=== PATIENT | male | born 1940 | race African-American/Black ===

== ENCOUNTER 2016-12-04 20:18 | Inpatient (IN) ==
[2016-12-04] MEDS ORDERED: ACETAMINOPHEN 500 MG TABLET PO STA (20:30)
[2016-12-04] MEDS ORDERED: KETOROLAC 30 MG/1 ML VIAL IV STA (20:49)
[2016-12-04] MEDS ORDERED: SODIUM CHLORIDE 0.9% 1,000 ML IV STA ×2 (20:50→22:48)
[2016-12-04] MEDS ORDERED: SODIUM CHLORIDE 0.9% 2,000 ML IV STA (20:53)
--- NOTE | 2016-12-04 20:57 | Emergency Department Note ---
Arrival - Arrival Chief Complaint: Upper Respiratory Stated Complaint: SOB, Coughing, chills ED Nursing Triage Note: C/O Fever/body aches/nonproductive cough. Onset over a week, but got worse tonight. Pt reports taking OTC meds without relief. Mode of Arrival: Wheelchair Time Seen by Provider: 12/04/16 20:49 - History of Present Illness HPI Narrative: This is a 76-year-old male of descent with a history of craniotomy, hyperlipidemia, hypertension, COPD, pneumonia, prostate surgery for prostate cancer, type 2 diabetes who presents with teeth chattering chills and fever which started this evening. He has no abdominal pain chest pain or shortness of breath. He has a nonproductive cough which he believes is chronic. He has a history of pneumonia. His flu vaccination is not current. Allergies/Adverse Reactions: Allergies Allergy/AdvReac Type Severity Reaction Status Date / Time No Known Allergies Allergy Verified 10/17/16 21:43 Home Medications: Home Medications Medication Instructions Recorded Confirmed Type Omeprazole 20 mg PO DAILY 09/23/14 12/04/16 History Tamsulosin [Flomax] 0.4 mg PO BEDTIME 09/23/14 12/04/16 History metFORMIN [Glucophage] 1,000 mg PO BID W/MEALS #60 tablet 09/27/14 12/04/16 Rx Potassium Chloride Cap/Tab [K Dur] 20 meq PO DAILY 06/16/15 12/04/16 History Insulin Detemir [Levemir] 30 unit SUBCUT BEDTIME 08/19/15 12/04/16 History Valsartan/Hydrochlorothiazide 1 tablet PO DAILY 08/19/15 12/04/16 History [Valsartan-Hctz 160-25 mg Tab] Finasteride 5 mg PO BEDTIME 03/24/16 12/04/16 History Glimepiride [Amaryl] 4 mg PO DAILY W/BREAKFAST 03/24/16 12/04/16 History Levalbuterol Neb [Xopenex Neb] 0.63 mg RESP TX RT Q4H PRN #0 neb 03/29/16 Rx Aspirin EC Tab 81 mg PO DAILY 10/10/16 12/04/16 History Nitroglycerin Sl Tab [Nitrostat] 0.4 mg SL Q5M PRN 10/10/16 12/04/16 History Fluticasone/Salmeterol 250-50 1 puff INH BID 10/11/16 12/04/16 History [Advair 250-50] HYDROcodone/ACETAMIN 10-325 [[place]to[place] 1 tablet PO BID 10/11/16 12/04/16 History 10-325] Review of System - Review of System Constitutional: Present: chills, fever. Absent: night sweats Head/Ears/Nose/Throat: Absent: epistaxis, nasal drainage Respiratory: Absent: respiratory distress, wheezing Cardiovascular: Absent: dyspnea on exertion, orthopnea Gastrointestinal: Absent: diarrhea, constipation, hematemesis Genitourinary male: Absent: urgency, hematuria Musculoskeletal: Absent: lower back pain, leg pain Skin: Absent: change in color, change in hair/nails Neurological: Absent: numbness, paresthesias, confusion Psychiatric: Absent: anxiety, depression Endocrine: Absent: heat intolerance, polyuria Hematological/Lymphatic: Absent: easy bruising, lymphadenopathy Allergic/Immunologic: Absent: urticaria, itchy eyes Medical,Surgical,& Family Hx - Medical History Cardio: History of: Hypertension Neurology: No history of: Seizures Endocrine: History of: Diabetes Mellitus (IDDM), Diabetes Mellitus (NIDDM), Dyslipidemia Respiratory: History of: COPD, Pneumonia Gastrointestinal: History of: GERD, Hemorrhoids Musculoskeletal: History of: Back/Neck Problems, Musculoskeletal Problems (ela shoulder pain sometimes. ?arthritis?) No history of: Amputation Reproductive: Reports: Reproductive Problems (prostate cancer) - Surgical History Cardiac Surgeries: Patient Denies: Cardiac Surgery Thoracic Surgeries: Patient denies;: Lobectomy Abdominal Surgeries: Surgical HX of: Abdominal Surgery, Hernia Repair Reproductive Surgeries: Surgical HX of;: Prostate Surgery (PT HAD PROSTATE SURGERY) Orthopedic Surgeries: Surgical HX of;: Orthopedic Surgery, Spinal Surgery - Family History Family History: Reports;: Family Cancer, Family Diabetes, Family Heart Disease, Family Hypertension - Social History Smoking Status: Current every day smoker Frequency of Alcohol Use: None Type of Drug Use: None Exam Vital Signs: Vital Signs Temperature 102.3 F H 12/04/16 21:43 Pulse Rate 132 H 12/04/16 20:34 Respiratory Rate 21 12/04/16 20:34 Blood Pressure 127/69 12/04/16 20:34 O2 Sat by Pulse Oximetry 95 12/04/16 20:31 - General General appearance: alert - Eye Eye exam: Present: PERRL, EOMI - ENT ENT exam: Present: normal exam - Neck Neck exam: Present: normal inspection, full ROM - Chest Chest inspection: Present: normal inspection, symmetric chest wall rise - Respiratory Respiratory exam: Present: normal lung sounds bilaterally - Cardiovascular Cardiovascular exam: Present: regular rate, irregular rhythm - Abdominal Exam Abdominal exam: Present: soft, normal bowel sounds - Extremities Exam Extremities exam: Present: normal inspection, full ROM - Back Exam Back exam: Present: normal inspection, full ROM - Neurological Exam Neurological exam: Present: alert, oriented X3 - Psychiatric Psychiatric exam: Present: normal affect, normal mood - Skin Skin exam: Present: warm, dry Course Course Narrative: Because the patient has teeth chattering chills high fever and infiltrate in the left lung on CT scan with hypotension it seems most compatible with sepsis as a result of pneumonia with a comorbidity of COPD requiring admission for intravenous antibiotics and fluid resuscitation. The case was discussed with the hospitalist who agreed to admit the patient. Results - Labs CBC & BMP: 12/04/16 21:20 12/04/16 21:20 Disposition Clinical Impression: Pneumonia, Sepsis Disposition: Still a Patient Additional Instructions: Because the patient has teeth chattering chills high fever and infiltrate in the left lung on CT scan with hypotension it seems most compatible with sepsis as a result of pneumonia with a comorbidity of COPD requiring admission for intravenous antibiotics and fluid resuscitation. The case was discussed with the hospitalist who agreed to admit the patient.
[2016-12-04] MEDS ORDERED: KETOROLAC 30 MG/1 ML VIAL ONE (21:38)
[2016-12-04] MEDS ORDERED: ACETAMINOPHEN 500 MG TABLET ONE (21:39)
[2016-12-04 21:43] LABS: Basophils # 0.1 10*3/uL (0.0-0.2); Basophils % 0.4 % (0.0-0.8); Eosinophils # 0.2 10*3/uL (0.0-0.87); Eosinophils % 1.6 % (0.00-10.9); Hematocrit 38.7 VOL% (42.0-52.0); Hemoglobin 12.6 GM/DL (14.0-18.0); Immature Granulocytes % 0.3 %; Immature Granulocytes Absolute 0.04 #; Lymphocytes # 1.3 10*3/uL (1.4-4.0); Lymphocytes % 10.9 % (21.2-54.2); Mean Corpuscular HGB Conc 32.6 GM/DL (32-36); Mean Corpuscular Hemoglobin 27 PG (27-34); Mean Corpuscular Volume 81.6 FL (87-102); Mean Platelet Volume 9.7 FL (9.6-12.0); Monocytes # 0.5 10*3/uL (0.11-0.8); Neutrophils # 9.5 10*3/uL (1.4-7.4); Neutrophils % 82.8 % (38.7-73.9); Platelet Count 304 T/CUMM (130-400); Red Blood Count 4.74 MC/CUMM (3.8-5.5); Red Cell Distribution Width 15.6 % (9.3-17.3); White Blood Count 11.5 T/CUMM (4-12)
[2016-12-04 21:49] LABS: Apearance,Urine CLEAR (Clear); Bilirubin,Urine Negative (Negative); Blood, Urine Negative (Negative); Glucose,Urine (UA) 50 mg/dL (Negative); Ketones,Urine Negative (Negative); Mucus,Urine Occasional /LPF (Occasional); Nitrite,Urine Negative (Negative); Protein,Urine Negative; Urine Color Yellow (Yellow); Urine Specific Gravity 1.013 (1.001-1.035); Urine Urobilinogen < 2.0 EU/DL (0.2-1.0); WBC,Urine <1 /HPF (0-6)
[2016-12-04 22:06] LABS: Alanine Aminotransferase 18 U/L (16-61); Albumin 3.3 G/DL (3.4-5.0); Alkaline Phosphatase 128 U/L (45-117); Aspartate Amino Transferase 15 U/L (0-37); Bilirubin,Total < 0.39 MG/DL (0.2-1.0); Blood Urea Nitrogen 27 MG/DL (7-18); Calcium 9.2 MG/DL (8.5-10.1); Glucose 271 MG/DL (74-106); Sodium 136 MMOL/L (136-145); Total Protein 7.4 G/DL (6.4-8.3)
[2016-12-04] MEDS ORDERED: CEFEPIME 2,000 MG in SODIUM CHLORIDE 0.9% 100 ML IV STA (22:48)
[2016-12-04] MEDS ORDERED: VANCOMYCIN INJ 1,000 MG in SODIUM CHLORIDE 0.9% 250 ML IV STA (22:49)
[2016-12-04] MEDS ORDERED: VANCOMYCIN 1,000 MG VIAL ONE (23:04)
[2016-12-04] MEDS ORDERED: SODIUM CHLORIDE 0.9% 100 ML IV ONE (23:05)
[2016-12-05] MEDS ORDERED: ACETAMINOPHEN 325 MG TABLET PO PRN
[2016-12-05] MEDS ORDERED: DEXTROSE 50% 25 GM/50 ML SYRINGE IV PRN
[2016-12-05] MEDS ORDERED: GLUCAGON 1 MG VIAL IM PRN
[2016-12-05] MEDS ORDERED: ALBUTEROL/IPRATROPIUM 3 ML NEB RESP TX PRN (00:12)
--- NOTE | 2016-12-05 00:28 | Hospitalist History & Physical ---
Assessment and Plan - Time spent with patient Time spent with patient: Greater than 30 minutes (1) Sepsis Status: Acute Assessment and plan: Admit to hospitalist services. Telemetry. WBC 11.5. Lactic acid 1.4. Blood cultures performed in ED; follow. Continue IV hydration with NS at 100 ml/hr. Ceftriaxone 2 g IV daily. Azithromycin 500 mg IV daily. Obtain CXR. Recheck CBC in am. Current Visit: Yes (2) Pneumonia Status: Acute Assessment and plan: As above for sepsis. O2 per unit protocol. Continuous pulse ox. DuoNebs Q6 hours and Q4 hours PRN. Current Visit: Yes (3) Hypotension Status: Acute Assessment and plan: Secondary to sepsis. Continue IV hydration with NS at 100 ml/hr. Hold home BP meds for now. Continue to monitor. Current Visit: Yes (4) Anemia Status: Acute Assessment and plan: Obtain FOBT. Recheck CBC in am. Current Visit: Yes (5) COPD (chronic obstructive pulmonary disease) Status: Chronic Assessment and plan: O2 per unit protocol. Continuous pulse ox. DuoNebs Q6 and Q4 PRN. Solumedrol 40 mg IV Q8 hours. Current Visit: Yes Qualifiers: COPD type: COPD with acute exacerbation Qualified Code(s): J44.1 - Chronic obstructive pulmonary disease with (acute) exacerbation (6) Diabetes Status: Chronic Assessment and plan: ADA diet. Accuchecks ACHS. SSI ACHS with Humulin R. Continue home dose of glimeperide and Levemir. Hold metformin due to creatinine of 1.7. Recheck BMP in am. Current Visit: Yes (7) DVT prophylaxis Status: Acute Assessment and plan: Lovenox 40 SQ daily. Current Visit: Yes History of Present Illness Chief complaint: chills, cough, weakness History of present illness: Mr. David Mcnair is a 76 year old male with a history of COPD, pneumonia, DM, and HTN who presented to the ED tonight with complaints of chills, cough and weakness. Cough began 2 days ago and was productive at first but then became dry today. Onset of chills and weakness was today. In the ED, the patient was found to have a temp of 103.4 and tachycardia in the 130s. WBC and lactic acid were normal. He was given 2 L of NS, after which his BP actually decreased into the 90s systolic. CT chest indicates left lobe pneumonia. Blood cultures were drawn, and the patient was started on antibiotic therapy. Hospitalist services were consulted, and the patient will be admitted to the telemetry unit for further evaluation and treatment. Home Medications Medication Instructions Recorded Confirmed Type Omeprazole 20 mg PO DAILY 09/23/14 12/04/16 History Tamsulosin [Flomax] 0.4 mg PO BEDTIME 09/23/14 12/04/16 History metFORMIN [Glucophage] 1,000 mg PO BID W/MEALS #60 tablet 09/27/14 12/04/16 Rx Potassium Chloride Cap/Tab [K Dur] 20 meq PO DAILY 06/16/15 12/04/16 History Insulin Detemir [Levemir] 30 unit SUBCUT BEDTIME 08/19/15 12/04/16 History Valsartan/Hydrochlorothiazide 1 tablet PO DAILY 08/19/15 12/04/16 History [Valsartan-Hctz 160-25 mg Tab] Finasteride 5 mg PO BEDTIME 03/24/16 12/04/16 History Glimepiride [Amaryl] 4 mg PO DAILY W/BREAKFAST 03/24/16 12/04/16 History Levalbuterol Neb [Xopenex Neb] 0.63 mg RESP TX RT Q4H PRN #0 neb 03/29/16 Rx Aspirin EC Tab 81 mg PO DAILY 10/10/16 12/04/16 History Nitroglycerin Sl Tab [Nitrostat] 0.4 mg SL Q5M PRN 10/10/16 12/04/16 History Fluticasone/Salmeterol 250-50 1 puff INH BID 10/11/16 12/04/16 History [Advair 250-50] HYDROcodone/ACETAMIN 10-325 [[place] 1 tablet PO BID 10/11/16 12/04/16 History 10-325] Allergies Allergy/AdvReac Type Severity Reaction Status Date / Time No Known Allergies Allergy Verified 10/17/16 21:43 Medical,Surgical,& Family Hx - Medical History Cardio: History of: Hypertension Psychological: No history of: Anxiety Disorders Neurology: No history of: Seizures Endocrine: History of: Diabetes Mellitus (IDDM), Dyslipidemia Respiratory: History of: COPD, Pneumonia Gastrointestinal: History of: GERD, Hemorrhoids Musculoskeletal: History of: Back/Neck Problems, Musculoskeletal Problems (ela shoulder pain sometimes. ?arthritis?) No history of: Amputation Reproductive: Reports: Reproductive Problems (prostate cancer) - Surgical History Cardiac Surgeries: Sugical HX of: Cardiac Catheterization Patient Denies: Cardiac Surgery Thoracic Surgeries: Patient denies;: Lobectomy Abdominal Surgeries: Surgical HX of: Abdominal Surgery, Hernia Repair Reproductive Surgeries: Surgical HX of;: Prostate Surgery (PT HAD PROSTATE SURGERY) Orthopedic Surgeries: Surgical HX of;: Orthopedic Surgery, Spinal Surgery - Family History Family History: Reports;: Family Cancer, Family Diabetes, Family Heart Disease, Family Hypertension - Social History Smoking Status: Current every day smoker Have you smoked in the last 12 months: Yes Time spent discussing smoking cessation with patient: 3 to 10 minutes (3 minutes spent discussing smoking cessation with patient.) Frequency of Alcohol Use: None Type of Drug Use: None Marital Status: Legally Lives With:: Children (daughter) Functional capacity: independent ambulation - Constitutional Constitutional: Present: chills, fever(s), weakness - EENT Eyes: Absent: blurry vision, diplopia, loss of vision Ears: Absent: decreased hearing, ear discharge, ear pain Nose, mouth and throat: Absent: headache(s), nasal congestion, sore throat - Cardiovascular Cardiovascular: Absent: chest pain at rest, chest pain with activity, dyspnea, edema, orthopnea, palpitations - Respiratory Respiratory: Present: cough, wheezing. Absent: dyspnea - Gastrointestinal Gastrointestinal: Absent: diarrhea, nausea, vomiting - Genitourinary Genitourinary: Absent: dysuria, hematuria, urinary frequency - Musculoskeletal Musculoskeletal: Present: muscle weakness. Absent: back pain, joint swelling, myalgias - Neurological Neurological: Absent: dizziness, numbness, paresthesias, syncope - Psychiatric Psychiatric: Absent: anxiety, depression - Endocrine Endocrine: Absent: cold intolerance, polydipsia, polyphagia, polyuria - Hematologic/Lymphatic Hematologic/Lymphatic: Absent: easy bleeding, easy bruising Exam - Constitutional Vitals: Period Temp Pulse Resp BP Sys/Campuzano Pulse Ox Last 24 Hr 100.2 F-103.4 F 132-133 20-22 127-129/69-70 95 Exam: Constitutional System: Febrile. Awake, alert and oriented x 3. No distress. No tremulousness. Head: Normocephalic, atraumatic. Ears, Nose and Throat System: No pain or tenderness. No epistaxis or discharge Eyes System: Pupils equal, round, and reactive. Extraocular muscles intact grossly. Neck: Supple, without adenopathy, No jugular venous distention. No thyromegaly, neck mass, or prior surgery apparent. Respiratory System: Bilateral wheezing noted. Cardiovascular System: Tachycardia; regular rhythm. No murmur. GI System: Abdomen soft, LLQ tenderness noted. Normo active bowel sounds present. Musculoskeletal System: Limbs with no pedal edema. Full distal pulses. Normal capillary refill. Neurological System: No discernable sensory deficit. No aphasia Psychiatric System: Conversation is rational Results - Labs CBC & BMP: 12/04/16 21:20 12/04/16 21:20 Lab Results: I have reviewed the past 24 hour labs
[2016-12-05] MEDS: ALBUTEROL/IPRATROPIUM 3 ML NEB RESP TX SCH ×4 (00:59→20:12)
[2016-12-05] MEDS ORDERED: SODIUM CHLORIDE 0.9% 1,000 ML IV STA (01:27)
[2016-12-05] MEDS: SODIUM CHLORIDE 0.9% 1,000 ML IV SCH ×3 (02:59→23:06)
[2016-12-05] MEDS: INSULIN GLARGINE 100 UNIT/ML SUBCUT SCH ×3 (03:08→21:57)
[2016-12-05] MEDS: ENOXAPARIN 40 MG/0.4 ML SYRINGE SUBCUT SCH ×2 (03:10→23:59)
[2016-12-05] MEDS: methylPREDNISolone SOD SUC 40 MG/1 ML VIAL IV SCH ×4 (03:11→23:58)
[2016-12-05] MEDS: AZITHROMYCIN INJ 500 MG in SODIUM CHLORIDE 0.9% 250 ML IV SCH (03:16)
[2016-12-05] MEDS: cefTRIAXone 2,000 MG in SODIUM CHLORIDE 0.9% 100 ML IV SCH (03:21)
[2016-12-05 07:23] LABS: Basophils % 0.4 % (0.0-0.8); Eosinophils # 0.1 10*3/uL (0.0-0.87); Eosinophils % 0.7 % (0.00-10.9); Hematocrit 35.1 VOL% (42.0-52.0); Hemoglobin 11.5 GM/DL (14.0-18.0); Immature Granulocytes % 0.3 %; Immature Granulocytes Absolute 0.03 #; Lymphocytes # 1.2 10*3/uL (1.4-4.0); Lymphocytes % 11.5 % (21.2-54.2); Mean Corpuscular HGB Conc 32.8 GM/DL (32-36); Mean Corpuscular Hemoglobin 27 PG (27-34); Mean Corpuscular Volume 82.6 FL (87-102); Monocytes # 0.2 10*3/uL (0.11-0.8); Monocytes % 1.6 % (1.7-12.7); Neutrophils # 9.1 10*3/uL (1.4-7.4); Neutrophils % 85.5 % (38.7-73.9); Platelet Count 270 T/CUMM (130-400); Red Blood Count 4.25 MC/CUMM (3.8-5.5); White Blood Count 10.7 T/CUMM (4-12)
[2016-12-05 07:54] LABS: Calcium 8.4 MG/DL (8.5-10.1); Osmolality,Calculated 288.5 MOS/KG (273-304); Potassium 4.5 MMOL/L (3.5-5.1)
[2016-12-05] MEDS: PANTOPRAZOLE 40 MG TABLET PO SCH (08:18)
[2016-12-05] MEDS: GLIMEPIRIDE 4 MG TABLET PO SCH (08:18)
--- NOTE | 2016-12-05 08:18 | CT Report ---
Exam: CT chest with intravenous contrast Clinical History: 76-year-old male with fever postop surgery 6 months ago. Known prostate cancer Technique: Axial computed tomography images of the chest with intravenous contrast. The CT exam was performed using one or more of the following dose reduction techniques: Automated exposure control, adjustment of the mA and/or kV according to patient size, or use of iterative reconstruction technique. Contrast: 100 mL of Omnipaque 350 administered intravenously. Comparison: No relevant prior studies available Findings: Lungs: Emphysematous changes predominantly involving upper lobes with focal area of interstitial thickening and irregularity involving the lingular lobe Pleural spaces: No pneumothorax. No significant effusion Heart: No cardiomegaly. No pericardial effusion Mediastinum: Intact. Normal trachea Bones/joints: Intact. No acute fracture. No dislocation. Soft tissues: No radiopaque foreign body Vasculature: Intact Lymph nodes: A few prominent scattered mediastinal and hilar lymph nodes Impression: 1. Chronic emphysema with superimposed left lingular pneumonia 2. Prominent mediastinal and hilar lymph nodes, likely reactive Exam: CT abdomen and pelvis with intravenous contrast Exam date: December 04, 2016 Clinical History: 76-year-old male with fever postop surgery 6 months ago. Known prostate cancer Technique: Axial computed tomography images of the abdomen and pelvis with intravenous contrast. All CT scans at this facility use one or more dose reduction techniques. Automated exposure control, MA/KV adjustment per patient size (including targeted exam Square dose is matched to indication) or iterative reconstruction technique Contrast: 100 mL of Omnipaque 350 administered intravenously Comparison: No relevant prior studies Findings: Lower thorax: No acute pathologic findings at the lung bases Abdomen: Liver: Unremarkable. No mass Gallbladder and bile ducts: Gallbladder is normal. No calcified stones. No ductal dilatation. Pancreas: Pancreas is normal. Spleen: Spleen is normal. Adrenals: No adrenal mass. Kidneys and ureters: Kidneys are normal in size, morphology and enhancement. Few scattered hypodensities, likely representing small cysts. No hydronephrosis. No ureteral calculus. Stomach and bowel: No evidence of acute gastritis, colitis or enteritis. No bowel obstruction. Moderate stool dispersed throughout the colon. Appendix: Unremarkable. No primary or secondary signs to suggest appendicitis. Pelvis: Bladder: Unremarkable Reproductive: Prostate gland is slightly irregular in contour with heterogeneity performing the urinary bladder base. Abdomen and pelvis: Intraperitoneal space: No pneumoperitoneum. No significant intraperitoneal fluid Bones/joints: No acute osseous abnormality Soft tissues: No mass Vasculature: No aortic aneurysm. Atheromatous calcifications Lymph nodes: No adenopathy Impression: 1. Constipation 2. Heterogeneous, mildly irregular prostate gland slightly deforming the urinary bladder base. 3. Other findings as discussed above PROCEDURE INTERPRETED AT [facility] DEPARTMENT OF RADIOLOGY Final Report Signed by: Fuentes Fay
[2016-12-05] MEDS: NICOTINE 14 MG/24 HR PATCH TRANSDERM SCH (08:19)
[2016-12-05] MEDS: INSULIN REGULAR 100 UNIT/ML SUBCUT SCH ×4 (08:21→21:57)
--- NOTE | 2016-12-05 08:48 | XRay Report ---
Portable chest December 05, 2016 at 0018 hours Indication: Shortness of breath, cough Comparison: October 17, 2016 Findings: Cardiomediastinal contours are normal. Emphysematous changes with diffuse interstitial coarsening throughout the upper lobes. Patchy alveolar opacities within the left midlung. No acute osseous abnormalities. Visualized upper abdomen demonstrates no acute pathology. Impression: Chronic emphysematous and interstitial changes with findings to suggest superimposed left midlung pneumonia PROCEDURE INTERPRETED AT [facility] DEPARTMENT OF RADIOLOGY Final Report Signed by: Fuentes Fay
[2016-12-05] MEDS ORDERED: SODIUM CHLORIDE 0.9% 1,000 ML IV ONE (09:36)
--- NOTE | 2016-12-05 09:47 | EKG Report ---
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
--- NOTE | 2016-12-05 11:21 | Hospitalist Progress Note ---
Assessment and Plan (1) Acute respiratory failure with hypoxemia Status: Acute Assessment and plan: Continue duo nebs every 6 hours. Continue azithromycin and Rocephin. Continue low-dose of steroids. Current Visit: Yes (2) Pneumonia Status: Acute Assessment and plan: Continue azithromycin and Rocephin. Current Visit: No (3) Acute exacerbation of chronic obstructive pulmonary disease (COPD) Status: Acute Assessment and plan: Continue duo nebs every 6 hours. Continue azithromycin and Rocephin. Continue low-dose of steroids. Current Visit: No (4) IDDM (insulin dependent diabetes mellitus) Status: Chronic Assessment and plan: Blood sugars not well controlled partially due to the steroids. Will increase insulin to 20 units of Lantus during the day and 30 units of Lantus at night. We will up his sliding scale to high dose Current Visit: No (5) Sepsis Status: Acute Assessment and plan: Resolved with IV fluids and antibiotics. Blood cultures pending Current Visit: Yes (6) Hypotension Status: Acute Assessment and plan: Resolved with IV fluids. Current Visit: Yes (7) Anemia Status: Acute Assessment and plan: Stable, continue proton Current Visit: Yes Hospitalist: Subjective Interval history: Patient admitted for sepsis. Hypotension has resolved with IV fluids. Patient received 3 L of IV fluids. Exam - Constitutional Vitals: Period Temp Pulse Resp BP Sys/Campuzano Pulse Ox Last 24 Hr 96.4 F-103.4 F 82-133 12-22 84-129/56-74 94-100 Exam: Heart Rate-[RRR] Lungs-[CTAB] GI-[+bs soft, NT] Ext-[no edema] Neuro [Motor 5/5], [alert and oriented times 3] psych [normal mood and affect] General [no acute distress] Results - Labs CBC & BMP: 12/05/16 06:44 12/05/16 06:44 Lab Results: I have reviewed the past 24 hour labs Labs: Flu swab negative - Diagnostic Findings Procedure: Chest x-ray: report reviewed by me (Chronic emphysema and interstitial changes consistent with left midlung pneumonia.)
[2016-12-05] MEDS: ASPIRIN EC 81 MG TABLET PO SCH (17:01)
[2016-12-05] MEDS: FLUTICASONE/SALMETEROL 250-50 DISKUS 14 DOSE INH SCH (21:06)
[2016-12-05] MEDS: TAMSULOSIN 0.4 MG CAPSULE PO SCH (21:07)
[2016-12-06] MEDS: ALBUTEROL/IPRATROPIUM 3 ML NEB RESP TX SCH ×4 (02:00→19:11)
[2016-12-06] MEDS: AZITHROMYCIN INJ 500 MG in SODIUM CHLORIDE 0.9% 250 ML IV SCH (02:05)
[2016-12-06 03:18] LABS: Basophils % 0.1 % (0.0-0.8); Hemoglobin 11.4 GM/DL (14.0-18.0); Immature Granulocytes % 0.5 %; Immature Granulocytes Absolute 0.07 #; Lymphocytes # 1.5 10*3/uL (1.4-4.0); Lymphocytes % 11.6 % (21.2-54.2); Mean Corpuscular HGB Conc 32.6 GM/DL (32-36); Mean Corpuscular Hemoglobin 27 PG (27-34); Mean Platelet Volume 10.1 FL (9.6-12.0); Monocytes # 0.3 10*3/uL (0.11-0.8); Monocytes % 2.4 % (1.7-12.7); Neutrophils % 85.4 % (38.7-73.9); Platelet Count 258 T/CUMM (130-400); Red Blood Count 4.27 MC/CUMM (3.8-5.5); Red Cell Distribution Width 15.9 % (9.3-17.3); White Blood Count 12.9 T/CUMM (4-12)
[2016-12-06] MEDS: cefTRIAXone 2,000 MG in SODIUM CHLORIDE 0.9% 100 ML IV SCH (03:24)
[2016-12-06 03:47] LABS: Calcium 8.7 MG/DL (8.5-10.1); Osmolality,Calculated 288.5 MOS/KG (273-304); Potassium 4.6 MMOL/L (3.5-5.1)
[2016-12-06] MEDS: GLIMEPIRIDE 4 MG TABLET PO SCH (09:40)
[2016-12-06] MEDS: methylPREDNISolone SOD SUC 40 MG/1 ML VIAL IV SCH ×2 (09:42→16:07)
[2016-12-06] MEDS: INSULIN GLARGINE 100 UNIT/ML SUBCUT SCH ×2 (09:43→20:59)
[2016-12-06] MEDS: INSULIN REGULAR 100 UNIT/ML SUBCUT SCH ×4 (09:43→20:59)
[2016-12-06] MEDS: SODIUM CHLORIDE 0.9% 1,000 ML IV SCH ×2 (09:44→20:10)
[2016-12-06] MEDS: PANTOPRAZOLE 40 MG TABLET PO SCH (10:04)
[2016-12-06] MEDS: ASPIRIN EC 81 MG TABLET PO SCH (10:04)
[2016-12-06] MEDS: FLUTICASONE/SALMETEROL 250-50 DISKUS 14 DOSE INH SCH ×2 (10:05→21:03)
[2016-12-06] MEDS: NICOTINE 14 MG/24 HR PATCH TRANSDERM SCH (10:05)
[2016-12-06] MEDS: TAMSULOSIN 0.4 MG CAPSULE PO SCH (20:59)
[2016-12-06] MEDS: ENOXAPARIN 40 MG/0.4 ML SYRINGE SUBCUT SCH (21:00)
[2016-12-07] MEDS: ALBUTEROL/IPRATROPIUM 3 ML NEB RESP TX SCH ×4 (00:55→19:09)
[2016-12-07] MEDS: methylPREDNISolone SOD SUC 40 MG/1 ML VIAL IV SCH ×2 (00:55→08:31)
[2016-12-07 03:34] LABS: Basophils % 0.1 % (0.0-0.8); Hematocrit 34.2 VOL% (42.0-52.0); Hemoglobin 11.2 GM/DL (14.0-18.0); Immature Granulocytes % 0.7 %; Immature Granulocytes Absolute 0.09 #; Lymphocytes # 1.1 10*3/uL (1.4-4.0); Lymphocytes % 8.7 % (21.2-54.2); Mean Corpuscular HGB Conc 32.7 GM/DL (32-36); Mean Corpuscular Hemoglobin 27 PG (27-34); Mean Corpuscular Volume 81.4 FL (87-102); Mean Platelet Volume 10.1 FL (9.6-12.0); Monocytes # 0.5 10*3/uL (0.11-0.8); Monocytes % 3.6 % (1.7-12.7); Neutrophils % 86.9 % (38.7-73.9); Platelet Count 256 T/CUMM (130-400); Red Cell Distribution Width 15.9 % (9.3-17.3); White Blood Count 12.6 T/CUMM (4-12)
[2016-12-07 04:01] LABS: Calcium 8.4 MG/DL (8.5-10.1)
[2016-12-07 04:02] LABS: Magnesium 2.2 MG/DL (1.8-2.4); Osmolality,Calculated 287.5 MOS/KG (273-304); Potassium 4.2 MMOL/L (3.5-5.1)
[2016-12-07] MEDS: SODIUM CHLORIDE 0.9% 1,000 ML IV SCH ×2 (06:19→17:02)
[2016-12-07] MEDS: INSULIN REGULAR 100 UNIT/ML SUBCUT SCH ×4 (08:30→21:41)
[2016-12-07] MEDS: INSULIN GLARGINE 100 UNIT/ML SUBCUT SCH ×2 (08:31→21:42)
[2016-12-07] MEDS: ASPIRIN EC 81 MG TABLET PO SCH (08:32)
[2016-12-07] MEDS: PANTOPRAZOLE 40 MG TABLET PO SCH (08:32)
[2016-12-07] MEDS: NICOTINE 14 MG/24 HR PATCH TRANSDERM SCH (08:32)
[2016-12-07] MEDS: GLIMEPIRIDE 4 MG TABLET PO SCH (08:32)
[2016-12-07] MEDS: FLUTICASONE/SALMETEROL 250-50 DISKUS 14 DOSE INH SCH ×2 (08:36→21:43)
[2016-12-07] MEDS: AZITHROMYCIN INJ 500 MG in SODIUM CHLORIDE 0.9% 250 ML IV SCH (08:40)
[2016-12-07] MEDS ORDERED: BISACODYL 5 MG TABLET PO PRN (10:31)
[2016-12-07] MEDS: cefTRIAXone 2,000 MG in SODIUM CHLORIDE 0.9% 100 ML IV SCH (10:33)
--- NOTE | 2016-12-07 10:34 | Hospitalist Progress Note ---
Assessment and Plan (1) Acute exacerbation of chronic obstructive pulmonary disease (COPD) Status: Acute Assessment and plan: He is significantly improved. I have changed his steroids to oral Prednisone. Current Visit: No (2) IDDM (insulin dependent diabetes mellitus) Status: Chronic Assessment and plan: His glucose today is 213. I will continue present doses of insulin. His glucoses should improve as his steroids are decreased. Current Visit: No (3) Acute respiratory failure with hypoxemia Status: Acute Assessment and plan: Resolved. Current Visit: Yes Hospitalist: Subjective Interval history: Patient was hospitalized with acute exacerbation of COPD. He has been treated with Duonebs, Corticosteroids, and antibiotics. He is feeling much better. He will probably be ready for discharge tomorrow. Exam - Constitutional Vitals: Period Temp Pulse Resp BP Sys/Campuzano Pulse Ox Last 24 Hr 96.4 F-98.0 F 73-99 16-97 122-155/66-84 90-100 General appearance: no acute distress - Head Head exam: Present: normal inspection - Neck Neck exam: Present: normal inspection - Respiratory Respiratory exam: Present: clear to auscultation bilaterally - Cardiovascular Cardiovascular exam: Present: regular rate and rhythm - GI/Abdominal GI/Abdominal exam: Present: normal bowel sounds, soft, other (Nontender.) - Extremities Exam Extremities exam: Present: normal inspection - Skin Skin exam: Present: normal color, warm, intact Results - Labs CBC & BMP: 12/07/16 03:22 12/07/16 03:22
[2016-12-07] MEDS: TAMSULOSIN 0.4 MG CAPSULE PO SCH (21:43)
[2016-12-07] MEDS: ENOXAPARIN 40 MG/0.4 ML SYRINGE SUBCUT SCH (21:45)
[2016-12-08] MEDS: ALBUTEROL/IPRATROPIUM 3 ML NEB RESP TX SCH ×3 (00:38→13:20)
[2016-12-08 05:46] LABS: Basophils % 0.4 % (0.0-0.8); Eosinophils # 0.2 10*3/uL (0.0-0.87); Hematocrit 35.5 VOL% (42.0-52.0); Hemoglobin 11.5 GM/DL (14.0-18.0); Immature Granulocytes % 1.2 %; Immature Granulocytes Absolute 0.11 #; Lymphocytes # 2.4 10*3/uL (1.4-4.0); Lymphocytes % 24.8 % (21.2-54.2); Mean Corpuscular HGB Conc 32.4 GM/DL (32-36); Mean Corpuscular Hemoglobin 26 PG (27-34); Mean Corpuscular Volume 81.6 FL (87-102); Mean Platelet Volume 9.5 FL (9.6-12.0); Monocytes # 0.7 10*3/uL (0.11-0.8); Monocytes % 7.3 % (1.7-12.7); NRBC # 0.04 10*3/uL; Neutrophils # 6.2 10*3/uL (1.4-7.4); Neutrophils % 64.3 % (38.7-73.9); Platelet Count 260 T/CUMM (130-400); Red Blood Count 4.35 MC/CUMM (3.8-5.5); Red Cell Distribution Width 15.9 % (9.3-17.3); White Blood Count 9.6 T/CUMM (4-12)
[2016-12-08 06:17] LABS: Calcium 8.5 MG/DL (8.5-10.1); Osmolality,Calculated 281.1 MOS/KG (273-304); Potassium 3.7 MMOL/L (3.5-5.1)
[2016-12-08 06:22] LABS: Alanine Aminotransferase 18 U/L (16-61); Albumin 2.4 G/DL (3.4-5.0); Alkaline Phosphatase 81 U/L (45-117); Aspartate Amino Transferase 11 U/L (0-37); Bilirubin,Total < 0.39 MG/DL (0.2-1.0); Blood Urea Nitrogen 14 MG/DL (7-18); Calcium 8.4 MG/DL (8.5-10.1); Glucose 59 MG/DL (74-106); Osmolality,Calculated 279.3 MOS/KG (273-304); Potassium 3.7 MMOL/L (3.5-5.1); Sodium 141 MMOL/L (136-145); Total Protein 5.9 G/DL (6.4-8.3)
[2016-12-08] MEDS: PANTOPRAZOLE 40 MG TABLET PO SCH (08:50)
[2016-12-08] MEDS: GLIMEPIRIDE 4 MG TABLET PO SCH (08:50)
[2016-12-08] MEDS: NICOTINE 14 MG/24 HR PATCH TRANSDERM SCH (08:51)
[2016-12-08] MEDS: AZITHROMYCIN INJ 500 MG in SODIUM CHLORIDE 0.9% 250 ML IV SCH (08:52)
[2016-12-08] MEDS ORDERED: predniSONE 20 MG TABLET PO SCH (09:00)
[2016-12-08] MEDS: SODIUM CHLORIDE 0.9% 1,000 ML IV SCH (09:13)
[2016-12-08] MEDS: INSULIN GLARGINE 100 UNIT/ML SUBCUT SCH (09:13)
[2016-12-08] MEDS: INSULIN REGULAR 100 UNIT/ML SUBCUT SCH ×2 (09:13→12:38)
[2016-12-08] MEDS: ASPIRIN EC 81 MG TABLET PO SCH (09:14)
[2016-12-08] MEDS: FLUTICASONE/SALMETEROL 250-50 DISKUS 14 DOSE INH SCH (09:14)
[2016-12-08] MEDS: cefTRIAXone 2,000 MG in SODIUM CHLORIDE 0.9% 100 ML IV SCH (10:23)
--- NOTE | 2016-12-08 11:08 | Discharge Summary ---
Hospital Course - Hospital Course Hospital Course: Patient was hospitalized with acute exacerbation of COPD. He presented with complaints of shortness of breath and coughing. He was treated in the hospital with duo nebs, corticosteroids, and antibiotics. He improved significantly by the next day. At the time of his discharge he was comfortable with no complaints. Diagnosis - Discharge Diagnosis (1) Acute exacerbation of chronic obstructive pulmonary disease (COPD) Status: Acute (2) IDDM (insulin dependent diabetes mellitus) Status: Chronic (3) Acute respiratory failure with hypoxemia Status: Acute Discharge Plan - Discharge Data Disposition: Disch To Home/Self Care Condition at Discharge: Stable Discharge Diet: advance to your usual diet Activity: resume usual activities as tolerated - Discharge Medications New predniSONE TAB [PredniSONE] 10 mg PO DAILY #7 tablet Azithromycin [Zithromax Tri-Venkat] 500 mg PO DAILY #3 tablet Continue Tamsulosin [Flomax] 0.4 mg PO BEDTIME Omeprazole 20 mg PO DAILY metFORMIN [Glucophage] 1,000 mg PO BID W/MEALS #60 tablet Potassium Chloride Cap/Tab [K Dur] 20 meq PO DAILY Valsartan/Hydrochlorothiazide [Valsartan-Hctz 160-25 mg Tab] 1 tablet PO DAILY Insulin Detemir [Levemir] 30 unit SUBCUT BEDTIME Finasteride 5 mg PO BEDTIME Nitroglycerin Sl Tab [Nitrostat] 0.4 mg SL Q5M PRN PRN Reason: Chest Pain Aspirin EC Tab 81 mg PO DAILY Fluticasone/Salmeterol 250-50 [Advair 250-50] 1 puff INH BID Glimepiride [Amaryl] 4 mg PO DAILY W/BREAKFAST Levalbuterol Neb [Xopenex Neb] 0.63 mg RESP TX RT Q4H PRN #0 neb PRN Reason: Shortness Of Breath/Wheezing HYDROcodone/ACETAMIN 10-325 [[place] 10-325] 1 tablet PO BID - Follow Up or Referral - Forms/Instructions Exam - Constitutional Vitals: Period Temp Pulse Resp BP Sys/Campuzano Pulse Ox Last 24 Hr 97.2 F-97.9 F 76-95 17-20 126-147/69-82 93-99 Discharge Results Procedures and tests throughout hospitalization: Pending Orders 12/04/16 21:20 Blood Culture Stat 12/06/16 00:10 Occult Blood, Stool Routine Labs on day of discharge: Labs from last 24 hours 12/08/16 12/08/16 12/08/16 08:49 07:14 05:33 WBC RBC Hgb Hct MCV MCH MCHC RDW Plt Count MPV Neut % (Auto) Lymph % (Auto) [place] % (Auto) Eos % (Auto) Baso % (Auto) Neut # (Auto) Lymph # (Auto) [place] # (Auto) Eos # (Auto) Baso # (Auto) Immature Gran % Nucleated RBC % Immature Gran # Nucleated RBCs # Immature Plt Fraction Sodium 141 Potassium 3.7 Chloride 110 H Carbon Dioxide 24 Anion Gap 10.7 BUN 14 Creatinine 1.00 GFR Calculation 102 BUN/Creatinine Ratio 14.00 Glucose 59 L POC Glucose 187 H 43 L* Calculated Osmolality 279.3 Calcium 8.4 L Magnesium Total Bilirubin < 0.39 AST 11 ALT 18 Alkaline Phosphatase 81 Total Protein 5.9 L Albumin 2.4 L Globulin 3.5 Albumin/Globulin Ratio 0.6 L 12/08/16 12/08/16 12/07/16 05:33 05:33 21:33 WBC 9.6 RBC 4.35 Hgb 11.5 L Hct 35.5 L MCV 81.6 L MCH 26 L MCHC 32.4 RDW 15.9 Plt Count 260 MPV 9.5 L Neut % (Auto) 64.3 Lymph % (Auto) 24.8 [place] % (Auto) 7.3 Eos % (Auto) 2.0 Baso % (Auto) 0.4 Neut # (Auto) 6.2 Lymph # (Auto) 2.4 [place] # (Auto) 0.7 Eos # (Auto) 0.2 Baso # (Auto) 0.0 Immature Gran % 1.2 Nucleated RBC % 0.4 Immature Gran # 0.11 Nucleated RBCs # 0.04 Immature Plt Fraction 0.0 Sodium 142 Potassium 3.7 Chloride 110 H Carbon Dioxide 27 Anion Gap 8.7 BUN 14 Creatinine 1.00 GFR Calculation 102 BUN/Creatinine Ratio 14.00 Glucose 57 L POC Glucose 330 H Calculated Osmolality 281.1 Calcium 8.5 Magnesium 2.0 Total Bilirubin AST ALT Alkaline Phosphatase Total Protein Albumin Globulin Albumin/Globulin Ratio 12/07/16 12/07/16 15:42 11:26 WBC RBC Hgb Hct MCV MCH MCHC RDW Plt Count MPV Neut % (Auto) Lymph % (Auto) [place] % (Auto) Eos % (Auto) Baso % (Auto) Neut # (Auto) Lymph # (Auto) [place] # (Auto) Eos # (Auto) Baso # (Auto) Immature Gran % Nucleated RBC % Immature Gran # Nucleated RBCs # Immature Plt Fraction Sodium Potassium Chloride Carbon Dioxide Anion Gap BUN Creatinine GFR Calculation BUN/Creatinine Ratio Glucose POC Glucose 188 H 242 H Calculated Osmolality Calcium Magnesium Total Bilirubin AST ALT Alkaline Phosphatase Total Protein Albumin Globulin Albumin/Globulin Ratio Preliminary micro results at discharge 12/04/16 21:20 Blood Culture - Preliminary Blood No growth at 3 days 12/04/16 21:20 Blood Culture - Preliminary Blood No growth at 3 days DS: Provider Date of admission: 12/05/16 00:00 Primary care physician: Cristiano Pete MD Attending physician on admission: Matty Chowdhury MD Discharging clinician: Josh Mason
[2016-12-08 11:38] VITALS: BP 125/76
== END 2016-12-08 15:47 | disposition home or self-care (01) | DRG 871 ==
LOC: N.ED 20:18 → SUATTDRO 12-05 → N.EDINP 12-05 → N.TELES 12-05 01:16 → N.ICU 12-05 02:22 → N.2E 12-05 16:06
PROVIDERS: ADMIT Internal Medicine Infectious Disease

== ENCOUNTER 2017-06-05 14:47 | Inpatient (IN) ==
[2017-06-05] MEDS ORDERED: methylPREDNISolone SOD SUC 125 MG/2 ML VIAL IV STA (15:14)
[2017-06-05] MEDS ORDERED: ALBUTEROL NEB SOLN 5 MG/ML 20 ML/BOTTLE CONT NEB STA (15:14)
[2017-06-05] MEDS ORDERED: methylPREDNISolone SOD SUC 125 MG/2 ML VIAL ONE (15:16)
[2017-06-05 15:26] LABS: Basophils # 0.1 10*3/uL (0.0-0.2); Basophils % 0.8 % (0.0-0.8); Eosinophils # 0.6 10*3/uL (0.0-0.87); Eosinophils % 6.9 % (0.00-10.9); Hematocrit 38.8 VOL% (42.0-52.0); Hemoglobin 12.8 GM/DL (14.0-18.0); Immature Granulocytes % 0.2 %; Immature Granulocytes Absolute 0.02 #; Lymphocytes # 1.9 10*3/uL (1.4-4.0); Lymphocytes % 23.2 % (21.2-54.2); Mean Corpuscular Hemoglobin 27 PG (27-34); Mean Platelet Volume 9.5 FL (9.6-12.0); Monocytes # 0.4 10*3/uL (0.11-0.8); Monocytes % 5.1 % (1.7-12.7); Neutrophils # 5.3 10*3/uL (1.4-7.4); Neutrophils % 63.8 % (38.7-73.9); Platelet Count 287 T/CUMM (130-400); Red Blood Count 4.79 MC/CUMM (3.8-5.5); Red Cell Distribution Width 15.7 % (9.3-17.3); White Blood Count 8.2 T/CUMM (4-12)
[2017-06-05 15:49] LABS: Lactic Acid 2.2 MMOL/L (0.4-2.0)
[2017-06-05 15:50] LABS: Alanine Aminotransferase 13 U/L (16-61); Albumin 3.3 G/DL (3.4-5.0); Alkaline Phosphatase 108 U/L (45-117); Aspartate Amino Transferase 16 U/L (0-37); Bilirubin,Total < 0.39 MG/DL (0.2-1.0); Blood Urea Nitrogen 17 MG/DL (7-18); Calcium 9.2 MG/DL (8.5-10.1); Glucose 224 MG/DL (74-106); Potassium 4.1 MMOL/L (3.5-5.1); Sodium 136 MMOL/L (136-145); Total Protein 8.1 G/DL (6.4-8.3); Troponin I Only < 0.015 NG/ML (0.00-0.045)
[2017-06-05] MEDS ORDERED: ALBUTEROL/IPRATROPIUM 3 ML NEB RESP TX PRN (17:07)
[2017-06-05] MEDS ORDERED: GLUCAGON 1 MG VIAL IM PRN (17:08)
[2017-06-05] MEDS ORDERED: DEXTROSE 50% 25 GM/50 ML VIAL IV PRN (17:08)
[2017-06-05] MEDS ORDERED: ACETAMINOPHEN 325 MG TABLET PO PRN (17:08)
[2017-06-05] MEDS ORDERED: NITROGLYCERIN SL 0.4 MG TABLET SL PRN (17:09)
[2017-06-05] MEDS: ALBUTEROL/IPRATROPIUM 3 ML NEB RESP TX SCH (19:36)
[2017-06-05 20:15] LABS: Lactic Acid 4.4 MMOL/L (0.4-2.0)
[2017-06-05] MEDS: ENOXAPARIN 40 MG/0.4 ML SYRINGE SUBCUT SCH (20:18)
[2017-06-05] MEDS: methylPREDNISolone SOD SUC 40 MG/1 ML VIAL IV SCH (20:18)
[2017-06-05] MEDS: FINASTERIDE 5 MG TABLET PO SCH (20:20)
[2017-06-05] MEDS: TAMSULOSIN 0.4 MG CAPSULE PO SCH (20:20)
[2017-06-05] MEDS: CLOTRIMAZOLE 1% CREAM 15 GM TUBE TOP SCH (20:20)
[2017-06-05] MEDS: FLUTICASONE/SALMETEROL 250-50 DISKUS 14 DOSE INH SCH (20:20)
[2017-06-05] MEDS: INSULIN REGULAR 100 UNIT/ML SUBCUT SCH (20:48)
[2017-06-05] MEDS ORDERED: INSULIN GLARGINE 100 UNIT/ML SUBCUT SCH (21:00)
[2017-06-06] MEDS: ALBUTEROL/IPRATROPIUM 3 ML NEB RESP TX SCH ×4 (00:05→20:00)
[2017-06-06] MEDS: methylPREDNISolone SOD SUC 40 MG/1 ML VIAL IV SCH ×3 (06:39→18:06)
[2017-06-06] MEDS: INSULIN REGULAR 100 UNIT/ML SUBCUT SCH ×4 (08:07→20:52)
[2017-06-06] MEDS: GLIMEPIRIDE 4 MG TABLET PO SCH (08:12)
[2017-06-06] MEDS: metFORMIN 500 MG TABLET PO SCH ×2 (08:12→17:36)
[2017-06-06] MEDS ORDERED: INSULIN GLARGINE 100 UNIT/ML SUBCUT SCH (08:38)
[2017-06-06] MEDS: VALSARTAN/HCTZ 80-12.5 MG TABLET PO SCH (08:56)
[2017-06-06] MEDS: AZITHROMYCIN 250 MG TABLET PO SCH (08:57)
[2017-06-06] MEDS: ASPIRIN EC 81 MG TABLET PO SCH (08:57)
[2017-06-06] MEDS: FOLIC ACID 1 MG TABLET PO SCH (08:57)
[2017-06-06] MEDS: POTASSIUM CHLORIDE 20 MEQ TABLET PO SCH (08:57)
[2017-06-06] MEDS: FLUTICASONE/SALMETEROL 250-50 DISKUS 14 DOSE INH SCH ×2 (08:58→20:53)
[2017-06-06] MEDS: NICOTINE 14 MG/24 HR PATCH TRANSDERM SCH (08:58)
[2017-06-06] MEDS ORDERED: ALOE VERA TOP SCH (09:00)
[2017-06-06] MEDS ORDERED: HYDROCORTISONE TOP SCH (09:00)
[2017-06-06] MEDS ORDERED: PANTOPRAZOLE 40 MG TABLET PO SCH (09:00)
[2017-06-06] MEDS: CLOTRIMAZOLE 1% CREAM 15 GM TUBE TOP SCH ×2 (09:02→20:53)
[2017-06-06] MEDS: ALUMINUM/MAGNES/SIMETH MAX STR 30 ML UDCUP PO PRN (10:45)
[2017-06-06] MEDS: ENOXAPARIN 40 MG/0.4 ML SYRINGE SUBCUT SCH (17:40)
[2017-06-06] MEDS: TAMSULOSIN 0.4 MG CAPSULE PO SCH (20:46)
[2017-06-06] MEDS: PANTOPRAZOLE 40 MG TABLET PO SCH (20:47)
[2017-06-06] MEDS: FINASTERIDE 5 MG TABLET PO SCH (20:47)
[2017-06-07] MEDS: methylPREDNISolone SOD SUC 40 MG/1 ML VIAL IV SCH ×4 (00:42→21:19)
[2017-06-07] MEDS: ALBUTEROL/IPRATROPIUM 3 ML NEB RESP TX SCH ×4 (01:10→19:51)
[2017-06-07 05:57] LABS: Basophils % 0.1 % (0.0-0.8); Hematocrit 35.7 VOL% (42.0-52.0); Hemoglobin 11.8 GM/DL (14.0-18.0); Immature Granulocytes % 0.7 %; Immature Granulocytes Absolute 0.08 #; Lymphocytes # 1.1 10*3/uL (1.4-4.0); Mean Corpuscular HGB Conc 33.1 GM/DL (32-36); Mean Corpuscular Hemoglobin 27 PG (27-34); Mean Platelet Volume 9.8 FL (9.6-12.0); Monocytes # 0.3 10*3/uL (0.11-0.8); Monocytes % 2.5 % (1.7-12.7); Neutrophils # 10.7 10*3/uL (1.4-7.4); Neutrophils % 87.7 % (38.7-73.9); Platelet Count 293 T/CUMM (130-400); Red Blood Count 4.41 MC/CUMM (3.8-5.5); Red Cell Distribution Width 15.4 % (9.3-17.3); White Blood Count 12.2 T/CUMM (4-12)
[2017-06-07 06:25] LABS: Calcium 8.8 MG/DL (8.5-10.1); Osmolality,Calculated 287.1 MOS/KG (273-304); Potassium 4.8 MMOL/L (3.5-5.1)
[2017-06-07] MEDS: INSULIN REGULAR 100 UNIT/ML SUBCUT SCH ×4 (08:37→21:02)
[2017-06-07] MEDS: NICOTINE 14 MG/24 HR PATCH TRANSDERM SCH (08:39)
[2017-06-07] MEDS: POTASSIUM CHLORIDE 20 MEQ TABLET PO SCH (08:41)
[2017-06-07] MEDS: AZITHROMYCIN 250 MG TABLET PO SCH (08:41)
[2017-06-07] MEDS: ASPIRIN EC 81 MG TABLET PO SCH (08:41)
[2017-06-07] MEDS: VALSARTAN/HCTZ 80-12.5 MG TABLET PO SCH (08:41)
[2017-06-07] MEDS: PANTOPRAZOLE 40 MG TABLET PO SCH ×2 (08:41→21:01)
[2017-06-07] MEDS: metFORMIN 500 MG TABLET PO SCH ×2 (08:41→17:51)
[2017-06-07] MEDS: FOLIC ACID 1 MG TABLET PO SCH (08:42)
[2017-06-07] MEDS: GLIMEPIRIDE 4 MG TABLET PO SCH (08:42)
[2017-06-07] MEDS: FLUTICASONE/SALMETEROL 250-50 DISKUS 14 DOSE INH SCH ×2 (08:45→21:00)
[2017-06-07] MEDS: CLOTRIMAZOLE 1% CREAM 15 GM TUBE TOP SCH ×2 (08:46→21:00)
[2017-06-07] MEDS: FINASTERIDE 5 MG TABLET PO SCH (21:01)
[2017-06-07] MEDS: TAMSULOSIN 0.4 MG CAPSULE PO SCH (21:01)
[2017-06-07] MEDS: ENOXAPARIN 40 MG/0.4 ML SYRINGE SUBCUT SCH (21:01)
[2017-06-07] MEDS: INSULIN GLARGINE 100 UNIT/ML SUBCUT SCH (21:01)
[2017-06-08] MEDS: ALBUTEROL/IPRATROPIUM 3 ML NEB RESP TX SCH ×4 (00:29→19:49)
[2017-06-08] MEDS: methylPREDNISolone SOD SUC 40 MG/1 ML VIAL IV SCH ×3 (02:37→20:49)
[2017-06-08 06:47] LABS: Basophils % 0.1 % (0.0-0.8); Hematocrit 38.1 VOL% (42.0-52.0); Hemoglobin 12.1 GM/DL (14.0-18.0); Immature Granulocytes % 0.7 %; Immature Granulocytes Absolute 0.08 #; Lymphocytes # 1.1 10*3/uL (1.4-4.0); Lymphocytes % 10.3 % (21.2-54.2); Mean Corpuscular HGB Conc 31.8 GM/DL (32-36); Mean Corpuscular Hemoglobin 26 PG (27-34); Mean Corpuscular Volume 82.6 FL (87-102); Mean Platelet Volume 9.9 FL (9.6-12.0); Monocytes # 0.3 10*3/uL (0.11-0.8); Monocytes % 2.9 % (1.7-12.7); Neutrophils # 9.6 10*3/uL (1.4-7.4); Platelet Count 302 T/CUMM (130-400); Red Blood Count 4.61 MC/CUMM (3.8-5.5); Red Cell Distribution Width 15.3 % (9.3-17.3); White Blood Count 11.1 T/CUMM (4-12)
[2017-06-08 07:04] LABS: Calcium 9.5 MG/DL (8.5-10.1); Osmolality,Calculated 282.2 MOS/KG (273-304); Potassium 4.9 MMOL/L (3.5-5.1)
[2017-06-08] MEDS: INSULIN REGULAR 100 UNIT/ML SUBCUT SCH ×4 (10:00→20:28)
[2017-06-08] MEDS: ASPIRIN EC 81 MG TABLET PO SCH (10:01)
[2017-06-08] MEDS: PANTOPRAZOLE 40 MG TABLET PO SCH ×2 (10:01→20:28)
[2017-06-08] MEDS: VALSARTAN/HCTZ 80-12.5 MG TABLET PO SCH (10:01)
[2017-06-08] MEDS: GLIMEPIRIDE 4 MG TABLET PO SCH (10:02)
[2017-06-08] MEDS: FOLIC ACID 1 MG TABLET PO SCH (10:02)
[2017-06-08] MEDS: POTASSIUM CHLORIDE 20 MEQ TABLET PO SCH (10:02)
[2017-06-08] MEDS: metFORMIN 500 MG TABLET PO SCH ×2 (10:02→17:44)
[2017-06-08] MEDS: NICOTINE 14 MG/24 HR PATCH TRANSDERM SCH (10:02)
[2017-06-08] MEDS: AZITHROMYCIN 250 MG TABLET PO SCH (10:02)
[2017-06-08] MEDS: FLUTICASONE/SALMETEROL 250-50 DISKUS 14 DOSE INH SCH ×2 (10:03→20:28)
[2017-06-08] MEDS: CLOTRIMAZOLE 1% CREAM 15 GM TUBE TOP SCH ×2 (10:03→20:28)
[2017-06-08] MEDS: FINASTERIDE 5 MG TABLET PO SCH (20:28)
[2017-06-08] MEDS: TAMSULOSIN 0.4 MG CAPSULE PO SCH (20:28)
[2017-06-08] MEDS: ENOXAPARIN 40 MG/0.4 ML SYRINGE SUBCUT SCH (20:29)
[2017-06-08] MEDS: INSULIN GLARGINE 100 UNIT/ML SUBCUT SCH (20:29)
[2017-06-09] MEDS: ALBUTEROL/IPRATROPIUM 3 ML NEB RESP TX SCH ×4 (02:14→19:59)
[2017-06-09 06:17] LABS: Basophils % 0.1 % (0.0-0.8); Hemoglobin 12.1 GM/DL (14.0-18.0); Immature Granulocytes % 0.8 %; Immature Granulocytes Absolute 0.08 #; Lymphocytes # 1.7 10*3/uL (1.4-4.0); Lymphocytes % 16.9 % (21.2-54.2); Mean Corpuscular HGB Conc 31.8 GM/DL (32-36); Mean Corpuscular Hemoglobin 26 PG (27-34); Mean Corpuscular Volume 81.9 FL (87-102); Mean Platelet Volume 10.1 FL (9.6-12.0); Monocytes # 0.7 10*3/uL (0.11-0.8); Neutrophils # 7.7 10*3/uL (1.4-7.4); Neutrophils % 75.2 % (38.7-73.9); Platelet Count 311 T/CUMM (130-400); Red Blood Count 4.64 MC/CUMM (3.8-5.5); Red Cell Distribution Width 15.4 % (9.3-17.3); White Blood Count 10.2 T/CUMM (4-12)
[2017-06-09 07:41] LABS: Calcium 9.2 MG/DL (8.5-10.1); Potassium 4.5 MMOL/L (3.5-5.1)
[2017-06-09] MEDS: INSULIN REGULAR 100 UNIT/ML SUBCUT SCH ×4 (07:47→21:21)
[2017-06-09] MEDS: AZITHROMYCIN 250 MG TABLET PO SCH (08:54)
[2017-06-09] MEDS: VALSARTAN/HCTZ 80-12.5 MG TABLET PO SCH (08:54)
[2017-06-09] MEDS: metFORMIN 500 MG TABLET PO SCH ×2 (08:54→17:04)
[2017-06-09] MEDS: ASPIRIN EC 81 MG TABLET PO SCH (08:55)
[2017-06-09] MEDS: FLUTICASONE/SALMETEROL 250-50 DISKUS 14 DOSE INH SCH ×2 (08:55→21:23)
[2017-06-09] MEDS: PANTOPRAZOLE 40 MG TABLET PO SCH ×2 (08:55→21:22)
[2017-06-09] MEDS: NICOTINE 14 MG/24 HR PATCH TRANSDERM SCH (08:55)
[2017-06-09] MEDS: GLIMEPIRIDE 4 MG TABLET PO SCH (08:55)
[2017-06-09] MEDS: FOLIC ACID 1 MG TABLET PO SCH (08:55)
[2017-06-09] MEDS: POTASSIUM CHLORIDE 20 MEQ TABLET PO SCH (08:55)
[2017-06-09] MEDS: CLOTRIMAZOLE 1% CREAM 15 GM TUBE TOP SCH ×2 (08:56→21:22)
[2017-06-09] MEDS: methylPREDNISolone SOD SUC 40 MG/1 ML VIAL IV SCH ×2 (08:56→21:21)
[2017-06-09] MEDS: ALUMINUM/MAGNES/SIMETH MAX STR 30 ML UDCUP PO PRN (09:01)
[2017-06-09] MEDS ORDERED: LACTULOSE 20 GM/30 ML UDCUP PO ONE (17:25)
[2017-06-09] MEDS ORDERED: MAGNESIUM HYDROXIDE SUSP 30 ML UDCUP PO ONE (17:25)
[2017-06-09] MEDS: INSULIN GLARGINE 100 UNIT/ML SUBCUT SCH (21:21)
[2017-06-09] MEDS: FINASTERIDE 5 MG TABLET PO SCH (21:22)
[2017-06-09] MEDS: ENOXAPARIN 40 MG/0.4 ML SYRINGE SUBCUT SCH (21:22)
[2017-06-09] MEDS: TAMSULOSIN 0.4 MG CAPSULE PO SCH (21:22)
[2017-06-10] MEDS: ALBUTEROL/IPRATROPIUM 3 ML NEB RESP TX SCH ×3 (02:05→13:10)
[2017-06-10] MEDS: metFORMIN 500 MG TABLET PO SCH (08:07)
[2017-06-10] MEDS: AZITHROMYCIN 250 MG TABLET PO SCH (08:07)
[2017-06-10] MEDS: VALSARTAN/HCTZ 80-12.5 MG TABLET PO SCH (08:07)
[2017-06-10] MEDS: ASPIRIN EC 81 MG TABLET PO SCH (08:07)
[2017-06-10] MEDS: FOLIC ACID 1 MG TABLET PO SCH (08:07)
[2017-06-10] MEDS: POTASSIUM CHLORIDE 20 MEQ TABLET PO SCH (08:07)
[2017-06-10] MEDS: NICOTINE 14 MG/24 HR PATCH TRANSDERM SCH (08:08)
[2017-06-10] MEDS: GLIMEPIRIDE 4 MG TABLET PO SCH (08:08)
[2017-06-10] MEDS: INSULIN REGULAR 100 UNIT/ML SUBCUT SCH ×2 (08:08→12:37)
[2017-06-10] MEDS: PANTOPRAZOLE 40 MG TABLET PO SCH (08:08)
[2017-06-10] MEDS: methylPREDNISolone SOD SUC 40 MG/1 ML VIAL IV SCH (08:09)
[2017-06-10] MEDS: CLOTRIMAZOLE 1% CREAM 15 GM TUBE TOP SCH (08:12)
[2017-06-10] MEDS: FLUTICASONE/SALMETEROL 250-50 DISKUS 14 DOSE INH SCH (08:12)
[2017-06-10] MEDS ORDERED: BISACODYL 10 MG SUPP RECTAL ONE (10:58)
[2017-06-10 12:26] VITALS: BP 129/68
== END 2017-06-10 15:34 | disposition home or self-care (01) | DRG 192 ==
LOC: EDUNIT# → EDBD → N.ED 14:47 → N.EDINP 16:44 → N.4E 19:11 → N.2E 06-06 18:32

== ENCOUNTER 2017-09-10 04:38 | Inpatient (IN) ==
[2017-09-10] MEDS ORDERED: methylPREDNISolone SOD SUC 125 MG/2 ML VIAL IV STA (04:58)
[2017-09-10] MEDS ORDERED: ALBUTEROL/IPRATROPIUM 3 ML NEB RESP TX STA (04:58)
[2017-09-10 05:24] LABS: Basophils # 0.1 10*3/uL (0.0-0.2); Basophils % 0.8 % (0.0-0.8); Eosinophils # 0.7 10*3/uL (0.0-0.87); Eosinophils % 7.3 % (0.00-10.9); Hematocrit 40.4 VOL% (42.0-52.0); Hemoglobin 12.8 GM/DL (14.0-18.0); Immature Granulocytes % 0.5 %; Immature Granulocytes Absolute 0.05 #; Lymphocytes # 3.5 10*3/uL (1.4-4.0); Lymphocytes % 34.2 % (21.2-54.2); Mean Corpuscular HGB Conc 31.7 GM/DL (32-36); Mean Corpuscular Hemoglobin 27 PG (27-34); Mean Corpuscular Volume 84.3 FL (87-102); Mean Platelet Volume 9.3 FL (9.6-12.0); Monocytes # 0.7 10*3/uL (0.11-0.8); Monocytes % 6.6 % (1.7-12.7); Neutrophils # 5.1 10*3/uL (1.4-7.4); Neutrophils % 50.6 % (38.7-73.9); Platelet Count 300 T/CUMM (130-400); Red Blood Count 4.79 MC/CUMM (3.8-5.5); Red Cell Distribution Width 15.9 % (9.3-17.3); White Blood Count 10.1 T/CUMM (4-12)
[2017-09-10 05:52] LABS: Alanine Aminotransferase 16 U/L (16-61); Albumin 3.6 G/DL (3.4-5.0); Alkaline Phosphatase 98 U/L (45-117); Aspartate Amino Transferase 10 U/L (0-37); Bilirubin,Total < 0.39 MG/DL (0.2-1.0); Blood Urea Nitrogen 33 MG/DL (7-18); Glucose 96 MG/DL (74-106); Osmolality,Calculated 283.5 MOS/KG (273-304); Potassium 4.2 MMOL/L (3.5-5.1); Sodium 139 MMOL/L (136-145); Total Protein 7.8 G/DL (6.4-8.3)
[2017-09-10] MEDS ORDERED: ALBUTEROL 2.5 MG/3 ML NEB RESP TX PRN (08:50)
[2017-09-10] MEDS ORDERED: NITROGLYCERIN SL 0.4 MG TABLET SL PRN (08:51)
[2017-09-10] MEDS ORDERED: GLUCAGON 1 MG VIAL IM PRN (10:45)
[2017-09-10] MEDS ORDERED: DEXTROSE 50% 25 GM/50 ML VIAL IV PRN (10:45)
[2017-09-10] MEDS ORDERED: AZITHROMYCIN INJ 500 MG in SODIUM CHLORIDE 0.9% 250 ML IV ONE (12:13)
[2017-09-10] MEDS: ALBUTEROL/IPRATROPIUM 3 ML NEB RESP TX SCH ×2 (12:54→19:04)
[2017-09-10] MEDS: VALSARTAN/HCTZ 80-12.5 MG TABLET PO SCH (14:51)
[2017-09-10] MEDS: FOLIC ACID 1 MG TABLET PO SCH (14:52)
[2017-09-10] MEDS: PANTOPRAZOLE 40 MG TABLET PO SCH (14:52)
[2017-09-10] MEDS: ASPIRIN EC 81 MG TABLET PO SCH (14:52)
[2017-09-10] MEDS: METOPROLOL SUCCINATE XL 25 MG TABLET PO SCH (14:52)
[2017-09-10] MEDS: methylPREDNISolone SOD SUC 125 MG/2 ML VIAL IV SCH ×2 (14:52→21:22)
[2017-09-10] MEDS: POTASSIUM CHLORIDE 20 MEQ TABLET PO SCH (14:52)
[2017-09-10] MEDS: cefTRIAXone 1,000 MG in SYRINGE 1 EACH IV SCH (14:54)
[2017-09-10] MEDS: AZITHROMYCIN INJ 250 MG in SODIUM CHLORIDE 0.9% 250 ML IV SCH (14:57)
[2017-09-10] MEDS: metFORMIN 500 MG TABLET PO SCH (17:25)
[2017-09-10] MEDS: TAMSULOSIN 0.4 MG CAPSULE PO SCH (21:21)
[2017-09-10] MEDS: FINASTERIDE 5 MG TABLET PO SCH (21:21)
[2017-09-10] MEDS: CETIRIZINE 10 MG TABLET PO SCH (21:22)
[2017-09-10] MEDS: INSULIN GLARGINE 100 UNIT/ML SUBCUT SCH (21:22)
[2017-09-11] MEDS: ALBUTEROL/IPRATROPIUM 3 ML NEB RESP TX SCH ×4 (02:42→19:15)
[2017-09-11 05:26] LABS: Basophils % 0.1 % (0.0-0.8); Eosinophils % 0.1 % (0.00-10.9); Hematocrit 36.6 VOL% (42.0-52.0); Hemoglobin 11.5 GM/DL (14.0-18.0); Immature Granulocytes % 0.8 %; Lymphocytes # 1.9 10*3/uL (1.4-4.0); Lymphocytes % 15.4 % (21.2-54.2); Mean Corpuscular HGB Conc 31.4 GM/DL (32-36); Mean Corpuscular Hemoglobin 26 PG (27-34); Mean Corpuscular Volume 83.2 FL (87-102); Mean Platelet Volume 10.1 FL (9.6-12.0); Monocytes # 0.6 10*3/uL (0.11-0.8); Monocytes % 4.9 % (1.7-12.7); Neutrophils # 9.6 10*3/uL (1.4-7.4); Neutrophils % 78.7 % (38.7-73.9); Platelet Count 305 T/CUMM (130-400); Red Cell Distribution Width 15.4 % (9.3-17.3); White Blood Count 12.2 T/CUMM (4-12)
[2017-09-11] MEDS: methylPREDNISolone SOD SUC 125 MG/2 ML VIAL IV SCH ×3 (05:55→21:35)
[2017-09-11 06:11] LABS: Alanine Aminotransferase 12 U/L (16-61); Albumin 3.2 G/DL (3.4-5.0); Alkaline Phosphatase 103 U/L (45-117); Aspartate Amino Transferase 9 U/L (0-37); Bilirubin,Total < 0.39 MG/DL (0.2-1.0); Blood Urea Nitrogen 37 MG/DL (7-18); Calcium 8.6 MG/DL (8.5-10.1); Glucose 397 MG/DL (74-106); Osmolality,Calculated 289.5 MOS/KG (273-304); Potassium 4.7 MMOL/L (3.5-5.1); Sodium 132 MMOL/L (136-145); Total Protein 7.2 G/DL (6.4-8.3)
[2017-09-11] MEDS: METOPROLOL SUCCINATE XL 25 MG TABLET PO SCH (08:50)
[2017-09-11] MEDS: VALSARTAN/HCTZ 80-12.5 MG TABLET PO SCH (08:50)
[2017-09-11] MEDS: metFORMIN 500 MG TABLET PO SCH (08:50)
[2017-09-11] MEDS: ASPIRIN EC 81 MG TABLET PO SCH (08:50)
[2017-09-11] MEDS: POTASSIUM CHLORIDE 20 MEQ TABLET PO SCH (08:50)
[2017-09-11] MEDS: PANTOPRAZOLE 40 MG TABLET PO SCH (08:50)
[2017-09-11] MEDS: FOLIC ACID 1 MG TABLET PO SCH (08:50)
[2017-09-11] MEDS: GLIMEPIRIDE 4 MG TABLET PO SCH (08:51)
[2017-09-11] MEDS: cefTRIAXone 1,000 MG in SYRINGE 1 EACH IV SCH (08:52)
[2017-09-11] MEDS ORDERED: DEXTROSE 50% 25 GM/50 ML VIAL IV PRN (10:00)
[2017-09-11] MEDS ORDERED: GLUCAGON 1 MG VIAL IM PRN (10:00)
[2017-09-11] MEDS: SODIUM CHLORIDE 0.9% 1,000 ML IV SCH ×2 (10:39→20:07)
[2017-09-11] MEDS: FLUTICASONE/SALMETEROL 250-50 DISKUS 14 DOSE INH SCH ×2 (12:43→20:06)
[2017-09-11] MEDS: AZITHROMYCIN INJ 250 MG in SODIUM CHLORIDE 0.9% 250 ML IV SCH (12:44)
[2017-09-11] MEDS: INSULIN LISPRO 100 UNIT/ML SUBCUT SCH ×3 (12:45→20:03)
[2017-09-11] MEDS: CETIRIZINE 10 MG TABLET PO SCH (20:03)
[2017-09-11] MEDS: FINASTERIDE 5 MG TABLET PO SCH (20:03)
[2017-09-11] MEDS: TAMSULOSIN 0.4 MG CAPSULE PO SCH (20:03)
[2017-09-11] MEDS: INSULIN GLARGINE 100 UNIT/ML SUBCUT SCH (20:03)
[2017-09-12] MEDS: ALBUTEROL/IPRATROPIUM 3 ML NEB RESP TX SCH ×2 (00:14→07:18)
[2017-09-12] MEDS: SODIUM CHLORIDE 0.9% 1,000 ML IV SCH ×2 (03:35→13:12)
[2017-09-12] MEDS: methylPREDNISolone SOD SUC 125 MG/2 ML VIAL IV SCH (05:25)
[2017-09-12] MEDS ORDERED: VALSARTAN 160 MG TABLET PO SCH (09:00)
[2017-09-12] MEDS: POTASSIUM CHLORIDE 20 MEQ TABLET PO SCH (09:05)
[2017-09-12] MEDS: ASPIRIN EC 81 MG TABLET PO SCH (09:06)
[2017-09-12] MEDS: INSULIN LISPRO 100 UNIT/ML SUBCUT SCH ×2 (09:06→13:12)
[2017-09-12] MEDS: FOLIC ACID 1 MG TABLET PO SCH (09:06)
[2017-09-12] MEDS: GLIMEPIRIDE 4 MG TABLET PO SCH (09:06)
[2017-09-12] MEDS: PANTOPRAZOLE 40 MG TABLET PO SCH (09:06)
[2017-09-12] MEDS: METOPROLOL SUCCINATE XL 25 MG TABLET PO SCH (09:06)
[2017-09-12] MEDS: cefTRIAXone 1,000 MG in SYRINGE 1 EACH IV SCH (09:07)
[2017-09-12] MEDS: FLUTICASONE/SALMETEROL 250-50 DISKUS 14 DOSE INH SCH (09:07)
[2017-09-12 09:54] LABS: Basophils % 0.1 % (0.0-0.8); Hemoglobin 12.6 GM/DL (14.0-18.0); Immature Granulocytes % 0.5 %; Immature Granulocytes Absolute 0.07 #; Lymphocytes # 1.3 10*3/uL (1.4-4.0); Lymphocytes % 9.8 % (21.2-54.2); Mean Corpuscular HGB Conc 31.5 GM/DL (32-36); Mean Corpuscular Hemoglobin 26 PG (27-34); Mean Corpuscular Volume 83.5 FL (87-102); Mean Platelet Volume 9.6 FL (9.6-12.0); Monocytes # 0.3 10*3/uL (0.11-0.8); Monocytes % 2.5 % (1.7-12.7); Neutrophils # 11.2 10*3/uL (1.4-7.4); Neutrophils % 87.1 % (38.7-73.9); Platelet Count 320 T/CUMM (130-400); Red Blood Count 4.79 MC/CUMM (3.8-5.5); Red Cell Distribution Width 15.8 % (9.3-17.3); White Blood Count 12.8 T/CUMM (4-12)
[2017-09-12 10:23] LABS: Albumin 3.5 G/DL (3.4-5.0); Bilirubin,Total 0.5 MG/DL (0.2-1.0); Calcium 9.2 MG/DL (8.5-10.1); Osmolality,Calculated 291.8 MOS/KG (273-304); Potassium 4.7 MMOL/L (3.5-5.1); Total Protein 7.8 G/DL (6.4-8.3)
[2017-09-12 12:17] VITALS: BP 171/78
== END 2017-09-12 14:40 | disposition home health service (06) | DRG 191 ==
LOC: N.ED 04:38 → N.EDINP 06:17 → SUATTDRO 06:17 → N.4E 07:26
PROVIDERS: ADMIT Internal Medicine; ATTEND Internal Medicine Infectious Disease

== ENCOUNTER 2019-05-16 16:06 | Inpatient (IN) ==
[2019-05-16 16:24] LABS: Basophils % 0.4 % (0.0-0.8); Eosinophils % 0.4 % (0.00-10.9); Hematocrit 34.3 VOL% (42.0-52.0); Hemoglobin 10.3 GM/DL (14.0-18.0); Immature Granulocytes % 0.6 %; Immature Granulocytes Absolute 0.06 #; Lymphocytes # 1.5 10*3/uL (1.4-4.0); Lymphocytes % 16.1 % (21.2-54.2); Mean Corpuscular Volume 83.1 FL (87-102); Mean Platelet Volume 9.2 FL (9.6-12.0); Monocytes % 1.8 % (1.7-12.7); Neutrophils % 80.7 % (38.7-73.9); Platelet Count 410 T/CUMM (130-400); Red Blood Count 4.13 MC/CUMM (3.8-5.5); Red Cell Distribution Width 15.3 % (9.3-17.3); White Blood Count 9.5 T/CUMM (4-12)
[2019-05-16 16:44] LABS: Alanine Aminotransferase 17 U/L (16-61); Albumin 3.1 G/DL (3.4-5.0); Alkaline Phosphatase 92 U/L (45-117); Aspartate Amino Transferase 18 U/L (0-37); Bilirubin,Total < 0.39 MG/DL (0.2-1.0); Blood Urea Nitrogen 24 MG/DL (7-18); Calcium 9.5 MG/DL (8.5-10.1); Estimated Glom Filtration Rate 77 ML/MIN; Glucose 265 MG/DL (74-106); Osmolality,Calculated 276.5 MOS/KG (273-304); Total Protein 8.2 G/DL (6.4-8.3)
[2019-05-16] MEDS ORDERED: methylPREDNISolone SOD SUC 125 MG/2 ML VIAL IV STA (16:54)
[2019-05-16] MEDS ORDERED: cefTRIAXone 1,000 MG in SODIUM CHLORIDE 0.9% 100 ML IV STA (16:54)
[2019-05-16] MEDS: ALBUTEROL/IPRATROPIUM 3 ML NEB RESP TX STA ×2 (17:40→18:55)
[2019-05-16 17:43] LABS: Apearance,Urine CLEAR (Clear); Bilirubin,Urine Negative (Negative); Blood, Urine Small mg/dL (Negative); Glucose,Urine (UA) 150 mg/dL (Negative); Ketones,Urine 5 mg/dL (Negative); Nitrite,Urine Negative (Negative); Protein,Urine Negative; Urine Color Straw (Yellow); Urine Specific Gravity 1.023 (1.001-1.035); Urine Urobilinogen < 2.0 EU/DL (0.2-1.0)
[2019-05-16] MEDS ORDERED: SODIUM CHLORIDE 0.9% 1,000 ML IV STA (17:47)
[2019-05-16] MEDS ORDERED: DEXTROSE 10% 250 ML BAG IV PRN (18:39)
[2019-05-16] MEDS ORDERED: GLUCAGON 1 MG VIAL IM PRN (18:39)
[2019-05-16] MEDS: ALBUTEROL/IPRATROPIUM 3 ML NEB RESP TX PRN (18:55)
[2019-05-16] MEDS: methylPREDNISolone SOD SUC 40 MG/1 ML VIAL IV SCH (21:02)
[2019-05-16] MEDS: SIMVASTATIN 10 MG TABLET PO SCH (21:02)
[2019-05-16] MEDS: TAMSULOSIN 0.4 MG CAPSULE PO SCH (21:02)
[2019-05-16] MEDS: INSULIN LISPRO 100 UNIT/ML SUBCUT SCH (22:00)
[2019-05-17 02:05] LABS: Basophils % 0.1 % (0.0-0.8); Eosinophils % 0.1 % (0.00-10.9); Hematocrit 31.5 VOL% (42.0-52.0); Hemoglobin 9.6 GM/DL (14.0-18.0); Immature Granulocytes % 0.9 %; Immature Granulocytes Absolute 0.07 #; Lymphocytes % 12.9 % (21.2-54.2); Mean Corpuscular HGB Conc 30.5 GM/DL (32-36); Mean Corpuscular Volume 81.2 FL (87-102); Mean Platelet Volume 9.2 FL (9.6-12.0); Monocytes % 0.6 % (1.7-12.7); Neutrophils % 85.4 % (38.7-73.9); Platelet Count 386 T/CUMM (130-400); Red Blood Count 3.88 MC/CUMM (3.8-5.5); Red Cell Distribution Width 15.2 % (9.3-17.3); White Blood Count 7.8 T/CUMM (4-12)
[2019-05-17 02:37] LABS: Albumin 2.9 G/DL (3.4-5.0); Bilirubin,Total 0.5 MG/DL (0.2-1.0); Osmolality,Calculated 282.4 MOS/KG (273-304); Thyroid Stimulating Hormone 0.316 uIU/ml (0.358-3.74); Total Protein 7.4 G/DL (6.4-8.3)
[2019-05-17] MEDS: LOSARTAN 50 MG TABLET PO SCH (08:26)
[2019-05-17] MEDS: METOPROLOL SUCCINATE XL 50 MG TABLET PO SCH (08:26)
[2019-05-17] MEDS ORDERED: VARENICLINE 1 MG PO SCH (09:00)
[2019-05-17] MEDS ORDERED: ASPIRIN EC 81 MG TABLET PO SCH (09:00)
[2019-05-17] MEDS: methylPREDNISolone SOD SUC 40 MG/1 ML VIAL IV SCH ×2 (09:38→17:24)
[2019-05-17] MEDS: INSULIN LISPRO 100 UNIT/ML SUBCUT SCH ×4 (09:39→20:13)
[2019-05-17] MEDS: cefTRIAXone 1,000 MG in SYRINGE 1 EACH IV SCH (15:00)
[2019-05-17] MEDS: SIMVASTATIN 10 MG TABLET PO SCH (20:11)
[2019-05-17] MEDS: TAMSULOSIN 0.4 MG CAPSULE PO SCH (20:11)
[2019-05-18] MEDS: methylPREDNISolone SOD SUC 40 MG/1 ML VIAL IV SCH ×3 (02:58→17:56)
[2019-05-18 03:33] LABS: Basophils % 0.1 % (0.0-0.8); Hematocrit 32.6 VOL% (42.0-52.0); Hemoglobin 10.2 GM/DL (14.0-18.0); Immature Granulocytes % 0.7 %; Lymphocytes # 1.7 10*3/uL (1.4-4.0); Lymphocytes % 12.6 % (21.2-54.2); Mean Corpuscular HGB Conc 31.3 GM/DL (32-36); Mean Corpuscular Volume 79.1 FL (87-102); Mean Platelet Volume 9.2 FL (9.6-12.0); Monocytes % 4.8 % (1.7-12.7); Neutrophils % 81.8 % (38.7-73.9); Platelet Count 434 T/CUMM (130-400); Red Blood Count 4.12 MC/CUMM (3.8-5.5); White Blood Count 13.4 T/CUMM (4-12)
[2019-05-18 03:58] LABS: Calcium 9.2 MG/DL (8.5-10.1); Osmolality,Calculated 278.7 MOS/KG (273-304)
[2019-05-18] MEDS: LOSARTAN 50 MG TABLET PO SCH (09:27)
[2019-05-18] MEDS: METOPROLOL SUCCINATE XL 50 MG TABLET PO SCH (09:27)
[2019-05-18] MEDS: cefTRIAXone 1,000 MG in SYRINGE 1 EACH IV SCH (09:27)
[2019-05-18] MEDS: INSULIN LISPRO 100 UNIT/ML SUBCUT SCH ×4 (09:33→21:06)
[2019-05-18] MEDS: TAMSULOSIN 0.4 MG CAPSULE PO SCH (21:04)
[2019-05-18] MEDS: SIMVASTATIN 10 MG TABLET PO SCH (21:04)
[2019-05-19] MEDS: methylPREDNISolone SOD SUC 40 MG/1 ML VIAL IV SCH ×3 (03:22→17:43)
[2019-05-19 05:11] LABS: Basophils % 0.1 % (0.0-0.8); Hematocrit 33.4 VOL% (42.0-52.0); Hemoglobin 10.3 GM/DL (14.0-18.0); Immature Granulocytes % 0.9 %; Immature Granulocytes Absolute 0.12 #; Lymphocytes % 14.8 % (21.2-54.2); Mean Corpuscular HGB Conc 30.8 GM/DL (32-36); Mean Corpuscular Volume 80.9 FL (87-102); Mean Platelet Volume 10.5 FL (9.6-12.0); Monocytes % 5.6 % (1.7-12.7); Neutrophils % 78.6 % (38.7-73.9); Platelet Count 337 T/CUMM (130-400); Red Blood Count 4.13 MC/CUMM (3.8-5.5); Red Cell Distribution Width 15.1 % (9.3-17.3); White Blood Count 13.5 T/CUMM (4-12)
[2019-05-19 05:33] LABS: Osmolality,Calculated 290.4 MOS/KG (273-304)
[2019-05-19] MEDS: LOSARTAN 50 MG TABLET PO SCH (09:18)
[2019-05-19] MEDS: METOPROLOL SUCCINATE XL 50 MG TABLET PO SCH (09:18)
[2019-05-19] MEDS: cefTRIAXone 1,000 MG in SYRINGE 1 EACH IV SCH (09:19)
[2019-05-19] MEDS: INSULIN LISPRO 100 UNIT/ML SUBCUT SCH ×5 (09:19→22:59)
[2019-05-19] MEDS: ALBUTEROL/IPRATROPIUM 3 ML NEB RESP TX PRN (16:42)
[2019-05-19] MEDS: SIMVASTATIN 10 MG TABLET PO SCH (20:10)
[2019-05-19] MEDS: TAMSULOSIN 0.4 MG CAPSULE PO SCH (20:10)
[2019-05-19] MEDS ORDERED: DEXTROSE 50% 25 GM/50 ML SYRINGE IV PRN (20:43)
[2019-05-19] MEDS ORDERED: MAGNESIUM HYDROXIDE SUSP 30 ML UDCUP PO ONE (20:46)
[2019-05-19] MEDS: INSULIN GLARGINE 100 UNIT/ML SUBCUT SCH (21:16)
[2019-05-20] MEDS: methylPREDNISolone SOD SUC 40 MG/1 ML VIAL IV SCH ×3 (02:48→17:20)
[2019-05-20 05:05] LABS: Hematocrit 33.2 VOL% (42.0-52.0); Hemoglobin 10.5 GM/DL (14.0-18.0); Immature Granulocytes % 0.8 %; Immature Granulocytes Absolute 0.11 #; Lymphocytes # 2.1 10*3/uL (1.4-4.0); Lymphocytes % 15.7 % (21.2-54.2); Mean Corpuscular HGB Conc 31.6 GM/DL (32-36); Mean Corpuscular Volume 79.2 FL (87-102); Mean Platelet Volume 9.5 FL (9.6-12.0); Monocytes % 7.2 % (1.7-12.7); NRBC # 0.02 10*3/uL; Neutrophils % 76.3 % (38.7-73.9); Platelet Count 491 T/CUMM (130-400); Red Blood Count 4.19 MC/CUMM (3.8-5.5); Red Cell Distribution Width 15.2 % (9.3-17.3); White Blood Count 13.7 T/CUMM (4-12)
[2019-05-20 05:25] LABS: Calcium 9.1 MG/DL (8.5-10.1); Osmolality,Calculated 285.2 MOS/KG (273-304)
[2019-05-20] MEDS ORDERED: GLYCOPYRROLATE 0.4 MG/2 ML VIAL IM ONE (07:00)
[2019-05-20] MEDS ORDERED: MIDAZOLAM 2 MG/2 ML VIAL ONE (07:00)
[2019-05-20] MEDS ORDERED: PROMETHAZINE 25 MG/1 ML VIAL IM ONE (07:00)
[2019-05-20] MEDS ORDERED: MEPERIDINE 50 MG/1 ML VIAL IM ONE (07:00)
[2019-05-20] MEDS ORDERED: LIDOCAINE 2% VISCOUS 100 ML BOTTLE SWISH/SPIT ONE (07:30)
[2019-05-20] MEDS ORDERED: LIDOCAINE 2% 20 ML VIAL RESP TX ONE (07:30)
[2019-05-20] MEDS ORDERED: LIDOCAINE 1% 20 ML VIAL MISC INJ ONE (07:30)
[2019-05-20] MEDS ORDERED: MIDAZOLAM 2 MG/2 ML VIAL IV ONE (07:30)
[2019-05-20] MEDS: cefTRIAXone 1,000 MG in SYRINGE 1 EACH IV SCH (09:55)
[2019-05-20] MEDS: INSULIN LISPRO 100 UNIT/ML SUBCUT SCH ×4 (09:57→20:33)
[2019-05-20] MEDS: LOSARTAN 50 MG TABLET PO SCH (09:58)
[2019-05-20] MEDS: METOPROLOL SUCCINATE XL 50 MG TABLET PO SCH (09:59)
[2019-05-20] MEDS ORDERED: DEXTROSE 50% 25 GM/50 ML VIAL IV PRN (10:44)
[2019-05-20] MEDS ORDERED: GLUCAGON 1 MG VIAL IM PRN (10:44)
[2019-05-20] MEDS: INSULIN GLARGINE 100 UNIT/ML SUBCUT SCH (17:24)
[2019-05-20] MEDS: TAMSULOSIN 0.4 MG CAPSULE PO SCH (20:33)
[2019-05-20] MEDS: SIMVASTATIN 10 MG TABLET PO SCH (20:33)
[2019-05-21] MEDS: methylPREDNISolone SOD SUC 40 MG/1 ML VIAL IV SCH ×3 (01:52→17:11)
[2019-05-21 05:14] LABS: Basophils % 0.1 % (0.0-0.8); Hematocrit 33.9 VOL% (42.0-52.0); Hemoglobin 10.5 GM/DL (14.0-18.0); Immature Granulocytes % 0.8 %; Lymphocytes # 1.5 10*3/uL (1.4-4.0); Lymphocytes % 11.7 % (21.2-54.2); Mean Corpuscular Volume 80.1 FL (87-102); Mean Platelet Volume 9.8 FL (9.6-12.0); Monocytes % 5.6 % (1.7-12.7); Neutrophils % 81.8 % (38.7-73.9); Platelet Count 492 T/CUMM (130-400); Red Blood Count 4.23 MC/CUMM (3.8-5.5); Red Cell Distribution Width 15.4 % (9.3-17.3); White Blood Count 12.9 T/CUMM (4-12)
[2019-05-21 05:42] LABS: Osmolality,Calculated 284.2 MOS/KG (273-304)
[2019-05-21] MEDS: INSULIN LISPRO 100 UNIT/ML SUBCUT SCH ×4 (09:07→20:40)
[2019-05-21] MEDS: METOPROLOL SUCCINATE XL 50 MG TABLET PO SCH (09:09)
[2019-05-21] MEDS: LOSARTAN 50 MG TABLET PO SCH (09:09)
[2019-05-21] MEDS: cefTRIAXone 1,000 MG in SYRINGE 1 EACH IV SCH (09:15)
[2019-05-21] MEDS: INSULIN GLARGINE 100 UNIT/ML SUBCUT SCH (17:10)
[2019-05-21] MEDS: ALBUTEROL/IPRATROPIUM 3 ML NEB RESP TX PRN (20:04)
[2019-05-21] MEDS: SIMVASTATIN 10 MG TABLET PO SCH (20:39)
[2019-05-21] MEDS: TAMSULOSIN 0.4 MG CAPSULE PO SCH (20:39)
[2019-05-22] MEDS: methylPREDNISolone SOD SUC 40 MG/1 ML VIAL IV SCH ×2 (01:50→09:52)
[2019-05-22 06:06] LABS: Basophils % 0.1 % (0.0-0.8); Hematocrit 34.1 VOL% (42.0-52.0); Hemoglobin 10.4 GM/DL (14.0-18.0); Immature Granulocytes Absolute 0.12 #; Lymphocytes # 1.3 10*3/uL (1.4-4.0); Lymphocytes % 10.2 % (21.2-54.2); Mean Corpuscular HGB Conc 30.5 GM/DL (32-36); Mean Corpuscular Volume 81.6 FL (87-102); Mean Platelet Volume 9.3 FL (9.6-12.0); NRBC # 0.02 10*3/uL; Neutrophils % 84.7 % (38.7-73.9); Platelet Count 451 T/CUMM (130-400); Red Blood Count 4.18 MC/CUMM (3.8-5.5); Red Cell Distribution Width 15.5 % (9.3-17.3); White Blood Count 12.6 T/CUMM (4-12)
[2019-05-22 06:43] LABS: Calcium 9.1 MG/DL (8.5-10.1); Osmolality,Calculated 287.1 MOS/KG (273-304)
[2019-05-22] MEDS: INSULIN LISPRO 100 UNIT/ML SUBCUT SCH ×4 (09:52→20:11)
[2019-05-22] MEDS: cefTRIAXone 1,000 MG in SYRINGE 1 EACH IV SCH (09:52)
[2019-05-22] MEDS: METOPROLOL SUCCINATE XL 50 MG TABLET PO SCH (09:53)
[2019-05-22] MEDS: LOSARTAN 50 MG TABLET PO SCH (09:53)
[2019-05-22] MEDS: INSULIN GLARGINE 100 UNIT/ML SUBCUT SCH (16:39)
[2019-05-22] MEDS: metFORMIN 500 MG TABLET PO SCH (20:10)
[2019-05-22] MEDS: TAMSULOSIN 0.4 MG CAPSULE PO SCH (20:10)
[2019-05-22] MEDS: SIMVASTATIN 10 MG TABLET PO SCH (20:11)
[2019-05-23 04:15] LABS: Basophils % 0.1 % (0.0-0.8); Eosinophils # 0.3 10*3/uL (0.0-0.87); Eosinophils % 1.8 % (0.00-10.9); Hematocrit 35.9 VOL% (42.0-52.0); Hemoglobin 10.9 GM/DL (14.0-18.0); Immature Granulocytes Absolute 0.14 #; Lymphocytes # 3.7 10*3/uL (1.4-4.0); Lymphocytes % 26.7 % (21.2-54.2); Mean Corpuscular HGB Conc 30.4 GM/DL (32-36); Mean Corpuscular Volume 83.5 FL (87-102); Mean Platelet Volume 9.1 FL (9.6-12.0); Monocytes % 8.8 % (1.7-12.7); NRBC # 0.04 10*3/uL; Neutrophils % 61.6 % (38.7-73.9); Platelet Count 441 T/CUMM (130-400); Red Cell Distribution Width 15.8 % (9.3-17.3); White Blood Count 13.9 T/CUMM (4-12)
[2019-05-23 04:46] LABS: Calcium 8.9 MG/DL (8.5-10.1); Osmolality,Calculated 285.5 MOS/KG (273-304)
[2019-05-23] MEDS: INSULIN LISPRO 100 UNIT/ML SUBCUT SCH ×4 (08:26→21:44)
[2019-05-23] MEDS: cefTRIAXone 1,000 MG in SYRINGE 1 EACH IV SCH (08:26)
[2019-05-23] MEDS: GLIMEPIRIDE 4 MG TABLET PO SCH (08:27)
[2019-05-23] MEDS: LOSARTAN 50 MG TABLET PO SCH (08:27)
[2019-05-23] MEDS: METOPROLOL SUCCINATE XL 50 MG TABLET PO SCH (08:27)
[2019-05-23] MEDS: metFORMIN 500 MG TABLET PO SCH ×2 (08:27→21:48)
[2019-05-23] MEDS ORDERED: MAGNESIUM HYDROXIDE SUSP 30 ML UDCUP PO PRN (08:37)
[2019-05-23] MEDS ORDERED: predniSONE 20 MG TABLET PO SCH (09:26)
[2019-05-23] MEDS: predniSONE 20 MG TABLET PO SCH (10:42)
[2019-05-23] MEDS: FLUTICASONE/SALMETEROL 250-50 DISKUS 14 DOSE INH SCH ×2 (10:42→21:51)
[2019-05-23] MEDS: ALBUTEROL/IPRATROPIUM 3 ML NEB RESP TX SCH ×4 (11:00→23:39)
[2019-05-23] MEDS ORDERED: MAGNESIUM HYDROXIDE SUSP 30 ML UDCUP PO SCH (14:00)
[2019-05-23] MEDS: INSULIN GLARGINE 100 UNIT/ML SUBCUT SCH (18:33)
[2019-05-23] MEDS: SIMVASTATIN 10 MG TABLET PO SCH (21:48)
[2019-05-23] MEDS: TAMSULOSIN 0.4 MG CAPSULE PO SCH (21:48)
[2019-05-24] MEDS: ALBUTEROL/IPRATROPIUM 3 ML NEB RESP TX SCH ×2 (03:32→07:15)
[2019-05-24 05:33] LABS: Basophils % 0.1 % (0.0-0.8); Eosinophils # 0.4 10*3/uL (0.0-0.87); Eosinophils % 2.5 % (0.00-10.9); Hematocrit 34.2 VOL% (42.0-52.0); Hemoglobin 10.1 GM/DL (14.0-18.0); Immature Granulocytes % 0.9 %; Immature Granulocytes Absolute 0.13 #; Lymphocytes # 3.3 10*3/uL (1.4-4.0); Lymphocytes % 23.6 % (21.2-54.2); Mean Corpuscular HGB Conc 29.5 GM/DL (32-36); Mean Corpuscular Volume 82.8 FL (87-102); Mean Platelet Volume 9.4 FL (9.6-12.0); Monocytes % 8.3 % (1.7-12.7); Neutrophils % 64.6 % (38.7-73.9); Platelet Count 413 T/CUMM (130-400); Red Blood Count 4.13 MC/CUMM (3.8-5.5); Red Cell Distribution Width 15.8 % (9.3-17.3); White Blood Count 13.8 T/CUMM (4-12)
[2019-05-24 05:51] LABS: Calcium 8.5 MG/DL (8.5-10.1); Osmolality,Calculated 285.8 MOS/KG (273-304)
[2019-05-24] MEDS: GLIMEPIRIDE 4 MG TABLET PO SCH (08:42)
[2019-05-24] MEDS: METOPROLOL SUCCINATE XL 50 MG TABLET PO SCH (08:42)
[2019-05-24] MEDS: predniSONE 20 MG TABLET PO SCH (08:42)
[2019-05-24] MEDS: INSULIN LISPRO 100 UNIT/ML SUBCUT SCH ×2 (08:42→12:00)
[2019-05-24] MEDS: LOSARTAN 50 MG TABLET PO SCH (08:42)
[2019-05-24] MEDS: metFORMIN 500 MG TABLET PO SCH (08:42)
[2019-05-24] MEDS: cefTRIAXone 1,000 MG in SYRINGE 1 EACH IV SCH ×2 (08:42→09:32)
[2019-05-24] MEDS: FLUTICASONE/SALMETEROL 250-50 DISKUS 14 DOSE INH SCH (08:43)
[2019-05-24 12:38] VITALS: BP 117/73
== END 2019-05-24 13:12 | disposition home health service (06) | DRG 180 ==
LOC: EDUNIT# → EDBD → N.ED 16:06 → N.EDINP 18:26 → N.4E 18:58
PROVIDERS: ADMIT Internal Medicine; ATTEND Internal Medicine
PROC: BRONCHB (2019-05-20 07:35)

== ENCOUNTER 2019-05-27 16:15 | Inpatient (IN) ==
[2019-05-27 17:43] LABS: Basophils % 0.1 % (0.0-0.8); Eosinophils # 0.2 10*3/uL (0.0-0.87); Eosinophils % 1.6 % (0.00-10.9); Hematocrit 34.2 VOL% (42.0-52.0); Hemoglobin 10.5 GM/DL (14.0-18.0); Immature Granulocytes % 0.9 %; Immature Granulocytes Absolute 0.13 #; Lymphocytes # 1.3 10*3/uL (1.4-4.0); Lymphocytes % 8.7 % (21.2-54.2); Mean Corpuscular HGB Conc 30.7 GM/DL (32-36); Mean Platelet Volume 10.2 FL (9.6-12.0); Monocytes % 5.5 % (1.7-12.7); Neutrophils % 83.2 % (38.7-73.9); Platelet Count 385 T/CUMM (130-400); Red Blood Count 4.17 MC/CUMM (3.8-5.5); Red Cell Distribution Width 16.2 % (9.3-17.3); White Blood Count 14.4 T/CUMM (4-12)
[2019-05-27 18:03] LABS: Alanine Aminotransferase 14 U/L (16-61); Albumin 2.9 G/DL (3.4-5.0); Alkaline Phosphatase 83 U/L (45-117); Aspartate Amino Transferase 13 U/L (0-37); Bilirubin,Total < 0.39 MG/DL (0.2-1.0); Blood Urea Nitrogen 20 MG/DL (7-18); Calcium 8.9 MG/DL (8.5-10.1); Estimated Glom Filtration Rate 71 ML/MIN; Glucose 264 MG/DL (74-106); Total Protein 6.3 G/DL (6.4-8.3)
[2019-05-27] MEDS ORDERED: ALBUTEROL/IPRATROPIUM 3 ML NEB RESP TX STA (23:21)
[2019-05-27] MEDS ORDERED: PIPERACILLIN/TAZOBACTAM 3,375 MG in SODIUM CHLORIDE 0.9% 100 ML IV STA (23:30)
[2019-05-27] MEDS ORDERED: methylPREDNISolone SOD SUC 125 MG/2 ML VIAL IV STA (23:31)
[2019-05-28] MEDS ORDERED: ACETAMINOPHEN 325 MG TABLET PO PRN (00:51)
[2019-05-28] MEDS ORDERED: ONDANSETRON 4 MG/2 ML VIAL IV PRN (00:51)
[2019-05-28] MEDS: ALBUTEROL/IPRATROPIUM 3 ML NEB RESP TX SCH ×4 (02:00→19:23)
[2019-05-28] MEDS ORDERED: GLUCAGON 1 MG VIAL IM PRN ×2 (02:20→08:19)
[2019-05-28] MEDS ORDERED: DEXTROSE 50% 25 GM/50 ML SYRINGE IV PRN (02:20)
[2019-05-28] MEDS: LEVOFLOXACIN INJ 750 MG in PREMIX 1 EACH IV SCH ×2 (02:38→23:54)
[2019-05-28 07:06] LABS: Basophils % 0.1 % (0.0-0.8); Eosinophils % 0.1 % (0.00-10.9); Hematocrit 33.2 VOL% (42.0-52.0); Hemoglobin 9.8 GM/DL (14.0-18.0); Immature Granulocytes % 0.8 %; Immature Granulocytes Absolute 0.11 #; Lymphocytes # 0.6 10*3/uL (1.4-4.0); Lymphocytes % 4.1 % (21.2-54.2); Mean Corpuscular HGB Conc 29.5 GM/DL (32-36); Mean Corpuscular Volume 83.8 FL (87-102); Mean Platelet Volume 10.3 FL (9.6-12.0); Monocytes % 0.7 % (1.7-12.7); Neutrophils % 94.2 % (38.7-73.9); Platelet Count 349 T/CUMM (130-400); Red Blood Count 3.96 MC/CUMM (3.8-5.5); Red Cell Distribution Width 16.2 % (9.3-17.3); White Blood Count 13.8 T/CUMM (4-12)
[2019-05-28 07:33] LABS: Albumin 2.6 G/DL (3.4-5.0); Bilirubin,Total 0.4 MG/DL (0.2-1.0); Calcium 8.6 MG/DL (8.5-10.1); Osmolality,Calculated 292.2 MOS/KG (273-304); Total Protein 6.2 G/DL (6.4-8.3)
[2019-05-28 07:34] LABS: Hypochromasia 1+; Lymphocytes 2 % (20-55); Platelet Estimate Adequate; Segmented Neutrophils 98 % (50-85); Total Cells Counted 100
[2019-05-28] MEDS ORDERED: methylPREDNISolone SOD SUC 125 MG/2 ML VIAL IV SCH (08:00)
[2019-05-28] MEDS ORDERED: DEXTROSE 50% 25 GM/50 ML VIAL IV PRN (08:19)
[2019-05-28] MEDS: INSULIN LISPRO 100 UNIT/ML SUBCUT SCH ×4 (09:00→21:13)
[2019-05-28] MEDS: PIPERACILLIN/TAZOBACTAM 3,375 MG in SODIUM CHLORIDE 0.9% 100 ML IV SCH ×2 (09:00→16:14)
[2019-05-28] MEDS ORDERED: ALBUTEROL 2.5 MG/3 ML NEB RESP TX PRN (13:02)
[2019-05-28] MEDS ORDERED: NITROGLYCERIN SL 0.4 MG TABLET SL PRN (13:02)
[2019-05-28] MEDS ORDERED: INSULIN LISPRO 100 UNIT/ML SUBCUT ONE (13:02)
[2019-05-28] MEDS ORDERED: Albuterol Sulfate [Ventolin Hfa] 2 PUFF INH PRN (13:02)
[2019-05-28] MEDS: INSULIN GLARGINE 100 UNIT/ML SUBCUT SCH (16:15)
[2019-05-28] MEDS ORDERED: metFORMIN 500 MG TABLET PO SCH (21:00)
[2019-05-28] MEDS: FLUTICASONE/SALMETEROL 250-50 DISKUS 14 DOSE INH SCH (21:12)
[2019-05-28] MEDS: TAMSULOSIN 0.4 MG CAPSULE PO SCH (21:13)
[2019-05-28] MEDS: SIMVASTATIN 10 MG TABLET PO SCH (21:13)
[2019-05-28] MEDS: methylPREDNISolone SOD SUC 125 MG/2 ML VIAL IV SCH (21:14)
[2019-05-28] MEDS: SODIUM CHLORIDE 0.9% 1,000 ML IV SCH (21:16)
[2019-05-29] MEDS: PIPERACILLIN/TAZOBACTAM 3,375 MG in SODIUM CHLORIDE 0.9% 100 ML IV SCH ×3 (01:33→19:09)
[2019-05-29] MEDS: SODIUM CHLORIDE 0.9% 1,000 ML IV SCH (04:23)
[2019-05-29 05:35] LABS: Basophils % 0.1 % (0.0-0.8); Hematocrit 31.2 VOL% (42.0-52.0); Hemoglobin 9.5 GM/DL (14.0-18.0); Immature Granulocytes % 0.7 %; Immature Granulocytes Absolute 0.12 #; Lymphocytes # 1.2 10*3/uL (1.4-4.0); Lymphocytes % 7.2 % (21.2-54.2); Mean Corpuscular HGB Conc 30.4 GM/DL (32-36); Mean Corpuscular Volume 81.9 FL (87-102); Mean Platelet Volume 9.5 FL (9.6-12.0); Monocytes % 4.9 % (1.7-12.7); Neutrophils % 87.1 % (38.7-73.9); Platelet Count 319 T/CUMM (130-400); Red Blood Count 3.81 MC/CUMM (3.8-5.5); Red Cell Distribution Width 16.1 % (9.3-17.3); White Blood Count 16.1 T/CUMM (4-12)
[2019-05-29 07:06] LABS: Calcium 8.9 MG/DL (8.5-10.1)
[2019-05-29] MEDS ORDERED: GLIMEPIRIDE 4 MG TABLET PO SCH (08:00)
[2019-05-29] MEDS: INSULIN GLARGINE 100 UNIT/ML SUBCUT SCH ×2 (08:57→12:22)
[2019-05-29] MEDS: LOSARTAN 25 MG TABLET PO SCH (08:58)
[2019-05-29] MEDS: methylPREDNISolone SOD SUC 125 MG/2 ML VIAL IV SCH ×2 (08:58→21:19)
[2019-05-29] MEDS: METOPROLOL SUCCINATE XL 50 MG TABLET PO SCH (08:58)
[2019-05-29] MEDS: INSULIN LISPRO 100 UNIT/ML SUBCUT SCH ×4 (08:58→22:31)
[2019-05-29] MEDS: MAGNESIUM OXIDE 400 MG TABLET PO SCH (08:58)
[2019-05-29] MEDS: FLUTICASONE/SALMETEROL 250-50 DISKUS 14 DOSE INH SCH ×2 (09:03→21:22)
[2019-05-29] MEDS ORDERED: DEXAMETHASONE INJ 10 MG in SODIUM CHLORIDE 0.9% 50 ML IV ONE (10:00)
[2019-05-29] MEDS ORDERED: GRANISETRON 1 MG/1 ML VIAL IV SCH (10:00)
[2019-05-29] MEDS ORDERED: ETOPOSIDE 150 MG in SODIUM CHLORIDE 0.9% 500 ML IV ONE (11:00)
[2019-05-29] MEDS: ALBUTEROL/IPRATROPIUM 3 ML NEB RESP TX SCH ×3 (13:33→19:04)
[2019-05-29] MEDS: POLYETHYLENE GLYCOL POWDER 17 GM PACK PO SCH (16:39)
[2019-05-29] MEDS: SIMVASTATIN 10 MG TABLET PO SCH (21:19)
[2019-05-29] MEDS: TAMSULOSIN 0.4 MG CAPSULE PO SCH (21:19)
[2019-05-29] MEDS ORDERED: LORazepam 2 MG/1 ML VIAL IV ONE (21:40)
[2019-05-30] MEDS: LEVOFLOXACIN INJ 750 MG in PREMIX 1 EACH IV SCH (01:37)
[2019-05-30] MEDS: SODIUM CHLORIDE 0.9% 1,000 ML IV SCH ×2 (01:39→10:03)
[2019-05-30] MEDS: PIPERACILLIN/TAZOBACTAM 3,375 MG in SODIUM CHLORIDE 0.9% 100 ML IV SCH ×4 (03:12→17:59)
[2019-05-30 04:55] LABS: Basophils % 0.1 % (0.0-0.8); Hematocrit 31.7 VOL% (42.0-52.0); Hemoglobin 9.7 GM/DL (14.0-18.0); Immature Granulocytes % 0.8 %; Immature Granulocytes Absolute 0.12 #; Lymphocytes # 1.2 10*3/uL (1.4-4.0); Lymphocytes % 7.9 % (21.2-54.2); Mean Corpuscular HGB Conc 30.6 GM/DL (32-36); Mean Corpuscular Volume 81.1 FL (87-102); Mean Platelet Volume 9.8 FL (9.6-12.0); Monocytes % 5.3 % (1.7-12.7); Neutrophils % 85.9 % (38.7-73.9); Platelet Count 322 T/CUMM (130-400); Red Blood Count 3.91 MC/CUMM (3.8-5.5); Red Cell Distribution Width 16.6 % (9.3-17.3); White Blood Count 14.6 T/CUMM (4-12)
[2019-05-30 05:13] LABS: Albumin 2.7 G/DL (3.4-5.0); Bilirubin,Direct 0.1 MG/DL (0.0-0.20); Bilirubin,Indirect 0.4 MG/DL (0.0-1.0); Bilirubin,Total 0.5 MG/DL (0.2-1.0); Calcium 8.8 MG/DL (8.5-10.1); Total Protein 6.5 G/DL (6.4-8.3)
[2019-05-30] MEDS: INSULIN GLARGINE 100 UNIT/ML SUBCUT SCH ×2 (07:52→09:00)
[2019-05-30] MEDS: INSULIN LISPRO 100 UNIT/ML SUBCUT SCH ×4 (07:53→21:21)
[2019-05-30] MEDS: MAGNESIUM OXIDE 400 MG TABLET PO SCH (08:15)
[2019-05-30] MEDS: METOPROLOL SUCCINATE XL 50 MG TABLET PO SCH (08:15)
[2019-05-30] MEDS: LOSARTAN 25 MG TABLET PO SCH (08:15)
[2019-05-30] MEDS: POLYETHYLENE GLYCOL POWDER 17 GM PACK PO SCH (08:16)
[2019-05-30] MEDS: methylPREDNISolone SOD SUC 125 MG/2 ML VIAL IV SCH ×2 (08:16→21:22)
[2019-05-30] MEDS: FLUTICASONE/SALMETEROL 250-50 DISKUS 14 DOSE INH SCH ×2 (08:16→21:22)
[2019-05-30] MEDS: ALBUTEROL/IPRATROPIUM 3 ML NEB RESP TX SCH ×5 (08:20→23:34)
[2019-05-30] MEDS ORDERED: CARBOplatin 350 MG in SODIUM CHLORIDE 0.9% 250 ML IV ONE (11:29)
[2019-05-30] MEDS ORDERED: GRANISETRON 1 MG/1 ML VIAL IV SCH (11:30)
[2019-05-30] MEDS ORDERED: DEXAMETHASONE INJ 10 MG in SODIUM CHLORIDE 0.9% 50 ML IV SCH (11:30)
[2019-05-30] MEDS: DEXAMETHASONE INJ 10 MG in SODIUM CHLORIDE 0.9% 50 ML IV SCH (13:56)
[2019-05-30] MEDS ORDERED: ALBUTEROL/IPRATROPIUM 3 ML NEB RESP TX PRN (14:00)
[2019-05-30] MEDS: PANTOPRAZOLE 40 MG VIAL IV SCH (14:18)
[2019-05-30] MEDS: ETOPOSIDE 150 MG in SODIUM CHLORIDE 0.9% 500 ML IV SCH (15:06)
[2019-05-30] MEDS: TAMSULOSIN 0.4 MG CAPSULE PO SCH (21:21)
[2019-05-30] MEDS: SIMVASTATIN 10 MG TABLET PO SCH (21:21)
[2019-05-31] MEDS: LEVOFLOXACIN INJ 750 MG in PREMIX 1 EACH IV SCH ×2 (00:50→23:25)
[2019-05-31] MEDS: ZALEPLON 5 MG CAPSULE PO PRN ×2 (00:53→23:27)
[2019-05-31] MEDS: ALBUTEROL/IPRATROPIUM 3 ML NEB RESP TX SCH ×7 (02:35→23:59)
[2019-05-31] MEDS: PIPERACILLIN/TAZOBACTAM 3,375 MG in SODIUM CHLORIDE 0.9% 100 ML IV SCH ×3 (02:45→19:03)
[2019-05-31 05:32] LABS: Hematocrit 31.1 VOL% (42.0-52.0); Hemoglobin 9.3 GM/DL (14.0-18.0); Immature Granulocytes % 0.4 %; Immature Granulocytes Absolute 0.05 #; Lymphocytes # 1.2 10*3/uL (1.4-4.0); Lymphocytes % 10.1 % (21.2-54.2); Mean Corpuscular HGB Conc 29.9 GM/DL (32-36); Mean Corpuscular Volume 82.5 FL (87-102); Mean Platelet Volume 9.9 FL (9.6-12.0); Monocytes % 6.1 % (1.7-12.7); Neutrophils % 83.4 % (38.7-73.9); Platelet Count 312 T/CUMM (130-400); Red Blood Count 3.77 MC/CUMM (3.8-5.5); Red Cell Distribution Width 16.4 % (9.3-17.3); White Blood Count 11.6 T/CUMM (4-12)
[2019-05-31 05:42] LABS: Calcium 8.8 MG/DL (8.5-10.1); Osmolality,Calculated 280.8 MOS/KG (273-304)
[2019-05-31] MEDS ORDERED: INSULIN GLARGINE 100 UNIT/ML SUBCUT SCH (08:03)
[2019-05-31] MEDS: INSULIN GLARGINE 100 UNIT/ML SUBCUT SCH ×2 (08:12→11:00)
[2019-05-31] MEDS: INSULIN LISPRO 100 UNIT/ML SUBCUT SCH ×4 (08:26→21:21)
[2019-05-31] MEDS: FLUTICASONE/SALMETEROL 250-50 DISKUS 14 DOSE INH SCH ×2 (10:01→21:21)
[2019-05-31] MEDS: LOSARTAN 25 MG TABLET PO SCH (10:02)
[2019-05-31] MEDS: METOPROLOL SUCCINATE XL 50 MG TABLET PO SCH (10:02)
[2019-05-31] MEDS: POLYETHYLENE GLYCOL POWDER 17 GM PACK PO SCH (10:02)
[2019-05-31] MEDS: PANTOPRAZOLE 40 MG VIAL IV SCH (10:02)
[2019-05-31] MEDS: MAGNESIUM OXIDE 400 MG TABLET PO SCH (10:02)
[2019-05-31] MEDS: methylPREDNISolone SOD SUC 125 MG/2 ML VIAL IV SCH ×2 (10:03→21:21)
[2019-05-31] MEDS: SODIUM CHLORIDE 0.9% 1,000 ML IV SCH ×3 (10:03→23:00)
[2019-05-31] MEDS: DEXAMETHASONE INJ 10 MG in SODIUM CHLORIDE 0.9% 50 ML IV SCH (15:55)
[2019-05-31] MEDS: ETOPOSIDE 150 MG in SODIUM CHLORIDE 0.9% 500 ML IV SCH (16:03)
[2019-05-31] MEDS: TAMSULOSIN 0.4 MG CAPSULE PO SCH (21:20)
[2019-05-31] MEDS: SIMVASTATIN 10 MG TABLET PO SCH (21:21)
[2019-06-01] MEDS: PIPERACILLIN/TAZOBACTAM 3,375 MG in SODIUM CHLORIDE 0.9% 100 ML IV SCH ×2 (01:27→09:24)
[2019-06-01] MEDS: ALBUTEROL/IPRATROPIUM 3 ML NEB RESP TX SCH ×3 (03:34→11:13)
[2019-06-01 04:50] LABS: Hematocrit 31.1 VOL% (42.0-52.0); Hemoglobin 9.2 GM/DL (14.0-18.0); Immature Granulocytes % 0.3 %; Immature Granulocytes Absolute 0.03 #; Lymphocytes # 0.9 10*3/uL (1.4-4.0); Lymphocytes % 10.1 % (21.2-54.2); Mean Corpuscular HGB Conc 29.6 GM/DL (32-36); Mean Corpuscular Volume 83.8 FL (87-102); Mean Platelet Volume 10.1 FL (9.6-12.0); Monocytes % 3.9 % (1.7-12.7); Neutrophils % 85.7 % (38.7-73.9); Platelet Count 299 T/CUMM (130-400); Red Blood Count 3.71 MC/CUMM (3.8-5.5); Red Cell Distribution Width 16.4 % (9.3-17.3)
[2019-06-01 05:10] LABS: Calcium 8.5 MG/DL (8.5-10.1)
[2019-06-01] MEDS: INSULIN LISPRO 100 UNIT/ML SUBCUT SCH ×2 (07:53→12:08)
[2019-06-01] MEDS ORDERED: GLIMEPIRIDE 4 MG TABLET PO SCH (08:00)
[2019-06-01] MEDS ORDERED: metFORMIN 500 MG TABLET PO SCH (08:00)
[2019-06-01] MEDS: methylPREDNISolone SOD SUC 125 MG/2 ML VIAL IV SCH (09:22)
[2019-06-01] MEDS: PANTOPRAZOLE 40 MG VIAL IV SCH (09:22)
[2019-06-01] MEDS: METOPROLOL SUCCINATE XL 50 MG TABLET PO SCH (09:23)
[2019-06-01] MEDS: POLYETHYLENE GLYCOL POWDER 17 GM PACK PO SCH (09:23)
[2019-06-01] MEDS: MAGNESIUM OXIDE 400 MG TABLET PO SCH (09:24)
[2019-06-01] MEDS: LOSARTAN 25 MG TABLET PO SCH (09:24)
[2019-06-01] MEDS: FLUTICASONE/SALMETEROL 250-50 DISKUS 14 DOSE INH SCH (09:24)
[2019-06-01 12:32] VITALS: BP 139/73
== END 2019-06-01 14:55 | disposition home or self-care (01) | DRG 180 ==
LOC: N.ED 16:15 → N.EDINP 05-28 00:51 → N.4E 05-28 02:05
PROVIDERS: ADMIT Internal Medicine; ATTEND Internal Medicine

== ENCOUNTER 2019-11-28 17:22 | Inpatient (IN) ==
[2019-11-28] MEDS ORDERED: DILTIAZEM 50 MG/10 ML VIAL IV STA ×2 (18:21→20:05)
[2019-11-28] MEDS ORDERED: SODIUM CHLORIDE 0.9% 1,000 ML IV STA (18:21)
[2019-11-28] MEDS ORDERED: methylPREDNISolone SOD SUC 125 MG/2 ML VIAL IV STA (18:21)
[2019-11-28] MEDS ORDERED: cefTRIAXone 1,000 MG in SODIUM CHLORIDE 0.9% 100 ML IV STA (18:21)
[2019-11-28 18:30] LABS: Basophils % 0.2 % (0.0-0.8); Eosinophils % 0.2 % (0.00-10.9); Hematocrit 30.3 VOL% (42.0-52.0); Hemoglobin 8.6 GM/DL (14.0-18.0); Immature Granulocytes % 0.3 %; Immature Granulocytes Absolute 0.02 #; Lymphocytes # 0.5 10*3/uL (1.4-4.0); Lymphocytes % 7.6 % (21.2-54.2); Mean Corpuscular HGB Conc 28.4 GM/DL (32-36); Mean Corpuscular Volume 77.9 FL (87-102); Mean Platelet Volume 9.2 FL (9.6-12.0); Monocytes % 4.4 % (1.7-12.7); Neutrophils % 87.3 % (38.7-73.9); Platelet Count 341 T/CUMM (130-400); Red Blood Count 3.89 MC/CUMM (3.8-5.5); Red Cell Distribution Width 21.2 % (9.3-17.3); White Blood Count 6.6 T/CUMM (4-12)
[2019-11-28 18:44] LABS: Alanine Aminotransferase 13 U/L (16-61); Albumin 2.4 G/DL (3.4-5.0); Alkaline Phosphatase 64 U/L (45-117); Aspartate Amino Transferase 21 U/L (0-37); Blood Urea Nitrogen 25 MG/DL (7-18); Calcium 9.2 MG/DL (8.5-10.1); Estimated Glom Filtration Rate 71 ML/MIN; Glucose 249 MG/DL (74-106); Osmolality,Calculated 275.5 MOS/KG (273-304); Total Protein 7.2 G/DL (6.4-8.3); Troponin I < 0.015 NG/ML (0.00-0.045)
[2019-11-28] MEDS ORDERED: PIPERACILLIN/TAZOBACTAM 3,375 MG in SODIUM CHLORIDE 0.9% 100 ML IV STA (19:42)
[2019-11-28] MEDS ORDERED: ENOXAPARIN 100 MG/ML SYRINGE SUBCUT STA (19:56)
[2019-11-28] MEDS ORDERED: NITROGLYCERIN SL 0.4 MG TABLET SL PRN (20:41)
[2019-11-28] MEDS ORDERED: GLUCAGON 1 MG VIAL IM PRN ×2 (20:47)
[2019-11-28] MEDS ORDERED: DEXTROSE 50% 25 GM/50 ML VIAL IV PRN ×2 (20:47)
[2019-11-28] MEDS: SODIUM CHLORIDE 0.9% 1,000 ML IV SCH (21:00)
[2019-11-28] MEDS: dilTIAZem Drip 125 MG/125 ML PREMIX IV SCH (21:00)
[2019-11-28] MEDS ORDERED: ENOXAPARIN 40 MG/0.4 ML SYRINGE SUBCUT SCH (21:00)
[2019-11-28 21:42] LABS: Amorphous Crystals,Urine Occasional /HPF (Few); Apearance,Urine CLEAR (Clear); Bacteria,Urine Occasional /HPF (Few); Bilirubin,Urine Negative (Negative); Blood, Urine Small mg/dL (Negative); Glucose,Urine (UA) 50 mg/dL (Negative); Ketones,Urine 20 mg/dL (Negative); Mucus,Urine Occasional /LPF (Occasional); Nitrite,Urine Negative (Negative); Protein,Urine 30 MG/DL; Urine Color Yellow (Yellow); Urine Specific Gravity 1.018 (1.001-1.035); Urine Urobilinogen < 2.0 EU/DL (0.2-1.0); WBC,Urine 2 /HPF (0-6)
[2019-11-28 22:16] LABS: Barbiturates Screen,Urine Negative (Negative); Benzodiazepines Screen,Urine Negative (Negative); Cannabinoid Screen,Urine Negative (Negative); Opiate Screen,Urine Positive (Negative); Phencyclidine Screen,Urine Negative (Negative)
[2019-11-28] MEDS: PIPERACILLIN/TAZOBACTAM 3,375 MG in SODIUM CHLORIDE 0.9% 100 ML IV SCH (23:24)
[2019-11-28] MEDS: INSULIN LISPRO 100 UNIT/ML SUBCUT SCH (23:36)
[2019-11-28] MEDS: SIMVASTATIN 10 MG TABLET PO SCH (23:36)
[2019-11-28] MEDS ORDERED: ALBUTEROL/IPRATROPIUM 3 ML NEB RESP TX ONE (23:44)
[2019-11-29] MEDS ORDERED: MAGNESIUM CITRATE 300 ML BOTTLE PO ONE (02:15)
[2019-11-29] MEDS: methylPREDNISolone SOD SUC 40 MG/1 ML VIAL IV SCH ×3 (02:19→17:41)
[2019-11-29] MEDS: ALBUTEROL/IPRATROPIUM 3 ML NEB RESP TX SCH ×5 (04:00→19:29)
[2019-11-29] MEDS: PIPERACILLIN/TAZOBACTAM 3,375 MG in SODIUM CHLORIDE 0.9% 100 ML IV SCH ×3 (05:05→21:36)
[2019-11-29 06:39] LABS: Hematocrit 29.1 VOL% (42.0-52.0); Immature Granulocytes % 0.8 %; Immature Granulocytes Absolute 0.03 #; Lymphocytes # 0.3 10*3/uL (1.4-4.0); Lymphocytes % 6.5 % (21.2-54.2); Mean Corpuscular HGB Conc 28.5 GM/DL (32-36); Mean Platelet Volume 8.9 FL (9.6-12.0); Monocytes % 2.3 % (1.7-12.7); Neutrophils % 90.4 % (38.7-73.9); Platelet Count 280 T/CUMM (130-400); Red Blood Count 3.73 MC/CUMM (3.8-5.5)
[2019-11-29 07:03] LABS: Calcium 9.1 MG/DL (8.5-10.1); Osmolality,Calculated 281.5 MOS/KG (273-304)
[2019-11-29 07:14] LABS: Hypochromasia 2+; Microcytosis 1+
[2019-11-29 07:15] LABS: Ovalocytes Few
[2019-11-29] MEDS: FLUTICASONE 50 MCG NASAL SPRAY 16 GM BOTTLE BOTH NARES SCH (09:04)
[2019-11-29] MEDS: MULTIVITAMIN (CENTRUM) TABLET PO SCH (09:04)
[2019-11-29] MEDS: MAGNESIUM OXIDE 400 MG TABLET PO SCH (09:04)
[2019-11-29] MEDS: FERROUS SULFATE 325 MG TABLET PO SCH (09:05)
[2019-11-29] MEDS: FOLIC ACID 1 MG TABLET PO SCH (09:05)
[2019-11-29] MEDS: PANTOPRAZOLE 40 MG TABLET PO SCH (09:05)
[2019-11-29] MEDS: INSULIN LISPRO 100 UNIT/ML SUBCUT SCH ×5 (09:06→21:35)
[2019-11-29] MEDS ORDERED: DOCUSATE SODIUM 100 MG CAPSULE PO ONE (09:12)
[2019-11-29] MEDS: ASPIRIN EC 81 MG TABLET PO SCH (09:17)
[2019-11-29] MEDS: SODIUM CHLORIDE 0.9% 1,000 ML IV SCH ×2 (09:54→17:44)
[2019-11-29] MEDS: APIXABAN 5 MG TABLET PO SCH ×2 (14:18→21:35)
[2019-11-29] MEDS: dilTIAZem Drip 125 MG/125 ML PREMIX IV SCH (21:34)
[2019-11-29] MEDS: FLUTICASONE/SALMETEROL 250-50 DISKUS 14 DOSE INH SCH (21:34)
[2019-11-29] MEDS: SIMVASTATIN 10 MG TABLET PO SCH (21:35)
[2019-11-29] MEDS: INSULIN GLARGINE 100 UNIT/ML SUBCUT SCH (21:36)
[2019-11-29] MEDS: POLYETHYLENE GLYCOL POWDER 17 GM PACK PO PRN (21:36)
[2019-11-30] MEDS: ALBUTEROL/IPRATROPIUM 3 ML NEB RESP TX SCH ×4 (00:41→19:53)
[2019-11-30] MEDS: methylPREDNISolone SOD SUC 40 MG/1 ML VIAL IV SCH ×3 (01:14→17:37)
[2019-11-30] MEDS: ONDANSETRON 4 MG/2 ML VIAL IV PRN ×3 (04:14→15:06)
[2019-11-30] MEDS: PIPERACILLIN/TAZOBACTAM 3,375 MG in SODIUM CHLORIDE 0.9% 100 ML IV SCH ×3 (04:14→22:04)
[2019-11-30] MEDS: INSULIN LISPRO 100 UNIT/ML SUBCUT SCH ×4 (09:19→22:00)
[2019-11-30] MEDS: FOLIC ACID 1 MG TABLET PO SCH (09:20)
[2019-11-30] MEDS: APIXABAN 5 MG TABLET PO SCH ×2 (09:20→22:02)
[2019-11-30] MEDS: FERROUS SULFATE 325 MG TABLET PO SCH (09:20)
[2019-11-30] MEDS: MAGNESIUM OXIDE 400 MG TABLET PO SCH (09:20)
[2019-11-30] MEDS: PANTOPRAZOLE 40 MG TABLET PO SCH ×2 (09:20→22:01)
[2019-11-30] MEDS: MULTIVITAMIN (CENTRUM) TABLET PO SCH (09:20)
[2019-11-30] MEDS: FLUTICASONE 50 MCG NASAL SPRAY 16 GM BOTTLE BOTH NARES SCH (09:21)
[2019-11-30] MEDS: ASPIRIN EC 81 MG TABLET PO SCH (09:21)
[2019-11-30] MEDS: FLUTICASONE/SALMETEROL 250-50 DISKUS 14 DOSE INH SCH ×2 (09:21→22:00)
[2019-11-30 09:53] LABS: Calcium 8.6 MG/DL (8.5-10.1); Osmolality,Calculated 288.1 MOS/KG (273-304)
[2019-11-30 10:11] LABS: Basophils % 0.1 % (0.0-0.8); Hematocrit 28.9 VOL% (42.0-52.0); Immature Granulocytes % 0.7 %; Immature Granulocytes Absolute 0.07 #; Lymphocytes # 0.2 10*3/uL (1.4-4.0); Mean Corpuscular HGB Conc 28.7 GM/DL (32-36); Mean Corpuscular Volume 77.7 FL (87-102); Mean Platelet Volume 9.2 FL (9.6-12.0); Monocytes % 3.5 % (1.7-12.7); Neutrophils % 93.7 % (38.7-73.9); Platelet Count 280 T/CUMM (130-400); Red Blood Count 3.72 MC/CUMM (3.8-5.5); Red Cell Distribution Width 20.6 % (9.3-17.3); White Blood Count 9.4 T/CUMM (4-12)
[2019-11-30 10:12] LABS: Hemoglobin 8.3 GM/DL (14.0-18.0)
[2019-11-30 10:28] LABS: Band Neutrophils 1 % (0-10); Hypochromasia 1+; Lymphocytes 1 % (20-55); Microcytosis Slight; Platelet Estimate Adequate; Segmented Neutrophils 93 % (50-85); Total Cells Counted 100
[2019-11-30] MEDS: SODIUM CHLORIDE 0.9% 1,000 ML IV SCH ×3 (12:56→23:41)
[2019-11-30] MEDS: INSULIN GLARGINE 100 UNIT/ML SUBCUT SCH (22:00)
[2019-11-30] MEDS: SIMVASTATIN 10 MG TABLET PO SCH (22:01)
[2019-11-30] MEDS: dilTIAZem Drip 125 MG/125 ML PREMIX IV SCH (22:05)
[2019-12-01] MEDS: ALBUTEROL/IPRATROPIUM 3 ML NEB RESP TX SCH ×2 (01:07→08:27)
[2019-12-01] MEDS: methylPREDNISolone SOD SUC 40 MG/1 ML VIAL IV SCH ×4 (02:49→17:38)
[2019-12-01] MEDS: PIPERACILLIN/TAZOBACTAM 3,375 MG in SODIUM CHLORIDE 0.9% 100 ML IV SCH ×3 (05:28→21:05)
[2019-12-01] MEDS: INSULIN LISPRO 100 UNIT/ML SUBCUT SCH ×4 (07:52→21:10)
[2019-12-01] MEDS: MAGNESIUM OXIDE 400 MG TABLET PO SCH ×2 (07:54→10:46)
[2019-12-01] MEDS: MULTIVITAMIN (CENTRUM) TABLET PO SCH ×2 (07:54→10:47)
[2019-12-01] MEDS: APIXABAN 5 MG TABLET PO SCH ×3 (07:54→21:13)
[2019-12-01] MEDS: FERROUS SULFATE 325 MG TABLET PO SCH ×2 (07:55→10:48)
[2019-12-01] MEDS: FOLIC ACID 1 MG TABLET PO SCH ×2 (07:55→10:46)
[2019-12-01] MEDS: ASPIRIN EC 81 MG TABLET PO SCH ×2 (07:55→10:47)
[2019-12-01] MEDS: PANTOPRAZOLE 40 MG TABLET PO SCH (07:56)
[2019-12-01] MEDS: FLUTICASONE/SALMETEROL 250-50 DISKUS 14 DOSE INH SCH ×2 (07:59→21:12)
[2019-12-01] MEDS: FLUTICASONE 50 MCG NASAL SPRAY 16 GM BOTTLE BOTH NARES SCH (08:30)
[2019-12-01] MEDS: SODIUM CHLORIDE 0.9% 1,000 ML IV SCH (09:31)
[2019-12-01 09:38] LABS: Basophils % 0.1 % (0.0-0.8); Hematocrit 29.6 VOL% (42.0-52.0); Hemoglobin 8.6 GM/DL (14.0-18.0); Immature Granulocytes % 0.5 %; Immature Granulocytes Absolute 0.05 #; Lymphocytes # 0.2 10*3/uL (1.4-4.0); Lymphocytes % 2.3 % (21.2-54.2); Mean Corpuscular HGB Conc 29.1 GM/DL (32-36); Mean Corpuscular Volume 77.5 FL (87-102); Mean Platelet Volume 9.3 FL (9.6-12.0); Monocytes % 1.2 % (1.7-12.7); Neutrophils % 95.9 % (38.7-73.9); Platelet Count 255 T/CUMM (130-400); Red Blood Count 3.82 MC/CUMM (3.8-5.5); Red Cell Distribution Width 20.8 % (9.3-17.3); White Blood Count 10.3 T/CUMM (4-12)
[2019-12-01 09:57] LABS: Lymphocytes 3 % (20-55); Platelet Estimate Adequate; Segmented Neutrophils 96 % (50-85); Total Cells Counted 100
[2019-12-01 09:58] LABS: Hypochromasia 2+; Microcytosis 1+; Ovalocytes Slight
[2019-12-01 10:00] LABS: Calcium 8.9 MG/DL (8.5-10.1)
[2019-12-01] MEDS ORDERED: NON-FORMULARY MEDICATION (Albuterol Sulfate [Ventolin Hfa] 2 PUFF) INH PRN (11:57)
[2019-12-01] MEDS: FAMOTIDINE 20 MG TABLET PO SCH ×2 (14:15→21:13)
[2019-12-01] MEDS: ASCORBIC ACID 500 MG TABLET PO SCH ×2 (14:17→21:13)
[2019-12-01] MEDS: ZINC GLUCONATE 50 MG TABLET PO SCH (14:17)
[2019-12-01] MEDS: CETIRIZINE 10 MG TABLET PO SCH (14:17)
[2019-12-01] MEDS ORDERED: SODIUM CHLORIDE 0.9% 1,000 ML IV PRN (15:29)
[2019-12-01] MEDS ORDERED: REMDESIVIR 200 MG in SODIUM CHLORIDE 0.9% 210 ML IV ONE (17:00)
[2019-12-01] MEDS: POLYETHYLENE GLYCOL POWDER 17 GM PACK PO PRN (18:14)
[2019-12-01] MEDS: ALBUTEROL INHALER 18 GM INH SCH (19:25)
[2019-12-01] MEDS ORDERED: FAMOTIDINE 20 MG TABLET PO SCH (21:00)
[2019-12-01] MEDS ORDERED: ASCORBIC ACID 500 MG TABLET PO SCH (21:00)
[2019-12-01] MEDS: INSULIN GLARGINE 100 UNIT/ML SUBCUT SCH (21:09)
[2019-12-01] MEDS: SIMVASTATIN 10 MG TABLET PO SCH (21:13)
[2019-12-02] MEDS: methylPREDNISolone SOD SUC 40 MG/1 ML VIAL IV SCH ×3 (01:37→17:23)
[2019-12-02] MEDS: ALBUTEROL INHALER 18 GM INH SCH ×4 (01:38→18:05)
[2019-12-02 04:33] LABS: Basophils % 0.1 % (0.0-0.8); Hematocrit 27.1 VOL% (42.0-52.0); Hemoglobin 7.7 GM/DL (14.0-18.0); Immature Granulocytes % 0.5 %; Immature Granulocytes Absolute 0.05 #; Lymphocytes # 0.3 10*3/uL (1.4-4.0); Lymphocytes % 2.9 % (21.2-54.2); Mean Corpuscular HGB Conc 28.4 GM/DL (32-36); Mean Corpuscular Volume 77.9 FL (87-102); Mean Platelet Volume 9.2 FL (9.6-12.0); Monocytes % 2.3 % (1.7-12.7); Neutrophils % 94.2 % (38.7-73.9); Platelet Count 258 T/CUMM (130-400); Red Blood Count 3.48 MC/CUMM (3.8-5.5); White Blood Count 9.2 T/CUMM (4-12)
[2019-12-02 04:48] LABS: Calcium 9.2 MG/DL (8.5-10.1); Osmolality,Calculated 277.8 MOS/KG (273-304)
[2019-12-02] MEDS: PIPERACILLIN/TAZOBACTAM 3,375 MG in SODIUM CHLORIDE 0.9% 100 ML IV SCH ×3 (05:16→20:27)
[2019-12-02 05:19] LABS: Hypochromasia 1+; Platelet Estimate Adequate; Segmented Neutrophils 98 % (50-85); Total Cells Counted 100
[2019-12-02 05:20] LABS: Microcytosis 1+
[2019-12-02] MEDS: INSULIN LISPRO 100 UNIT/ML SUBCUT SCH ×4 (08:39→20:27)
[2019-12-02] MEDS: ASCORBIC ACID 500 MG TABLET PO SCH ×2 (08:40→20:27)
[2019-12-02] MEDS: MULTIVITAMIN (CENTRUM) TABLET PO SCH (08:40)
[2019-12-02] MEDS: FAMOTIDINE 20 MG TABLET PO SCH ×2 (08:40→20:27)
[2019-12-02] MEDS: ASPIRIN EC 81 MG TABLET PO SCH (08:40)
[2019-12-02] MEDS: ZINC GLUCONATE 50 MG TABLET PO SCH (08:40)
[2019-12-02] MEDS: FOLIC ACID 1 MG TABLET PO SCH (08:40)
[2019-12-02] MEDS: FLUTICASONE/SALMETEROL 250-50 DISKUS 14 DOSE INH SCH ×2 (08:40→20:27)
[2019-12-02] MEDS: CETIRIZINE 10 MG TABLET PO SCH (08:40)
[2019-12-02] MEDS: MAGNESIUM OXIDE 400 MG TABLET PO SCH (08:40)
[2019-12-02] MEDS: APIXABAN 5 MG TABLET PO SCH ×2 (08:41→20:27)
[2019-12-02] MEDS: FLUTICASONE 50 MCG NASAL SPRAY 16 GM BOTTLE BOTH NARES SCH (08:41)
[2019-12-02] MEDS: FERROUS SULFATE 325 MG TABLET PO SCH (08:41)
[2019-12-02] MEDS ORDERED: CETIRIZINE 10 MG TABLET PO SCH (09:00)
[2019-12-02] MEDS ORDERED: ZINC GLUCONATE 50 MG TABLET PO SCH (09:00)
[2019-12-02] MEDS: LACTULOSE 20 GM/30 ML UDCUP PO SCH ×2 (11:29→17:22)
[2019-12-02] MEDS: REMDESIVIR 100 MG in SODIUM CHLORIDE 0.9% 230 ML IV SCH (17:23)
[2019-12-02] MEDS: INSULIN GLARGINE 100 UNIT/ML SUBCUT SCH (20:26)
[2019-12-02] MEDS: SIMVASTATIN 10 MG TABLET PO SCH (20:27)
[2019-12-03] MEDS: LACTULOSE 20 GM/30 ML UDCUP PO SCH ×5 (00:22→22:23)
[2019-12-03] MEDS: methylPREDNISolone SOD SUC 40 MG/1 ML VIAL IV SCH ×3 (00:55→16:27)
[2019-12-03] MEDS: PIPERACILLIN/TAZOBACTAM 3,375 MG in SODIUM CHLORIDE 0.9% 100 ML IV SCH (04:10)
[2019-12-03] MEDS: ALBUTEROL INHALER 18 GM INH SCH ×4 (07:01→18:21)
[2019-12-03] MEDS: FAMOTIDINE 20 MG TABLET PO SCH ×2 (09:02→20:29)
[2019-12-03] MEDS: APIXABAN 5 MG TABLET PO SCH ×2 (09:02→20:29)
[2019-12-03] MEDS: ASPIRIN EC 81 MG TABLET PO SCH (09:02)
[2019-12-03] MEDS: ZINC GLUCONATE 50 MG TABLET PO SCH (09:02)
[2019-12-03] MEDS: FOLIC ACID 1 MG TABLET PO SCH (09:02)
[2019-12-03] MEDS: INSULIN LISPRO 100 UNIT/ML SUBCUT SCH ×4 (09:03→20:28)
[2019-12-03] MEDS: MAGNESIUM OXIDE 400 MG TABLET PO SCH (09:03)
[2019-12-03] MEDS: FERROUS SULFATE 325 MG TABLET PO SCH (09:03)
[2019-12-03] MEDS: MULTIVITAMIN (CENTRUM) TABLET PO SCH (09:03)
[2019-12-03] MEDS: ASCORBIC ACID 500 MG TABLET PO SCH ×2 (09:03→20:37)
[2019-12-03] MEDS: CETIRIZINE 10 MG TABLET PO SCH (09:03)
[2019-12-03] MEDS: FLUTICASONE 50 MCG NASAL SPRAY 16 GM BOTTLE BOTH NARES SCH (09:04)
[2019-12-03] MEDS: FLUTICASONE/SALMETEROL 250-50 DISKUS 14 DOSE INH SCH ×2 (09:04→20:34)
[2019-12-03] MEDS: VANCOMYCIN INJ 1,250 MG in SODIUM CHLORIDE 0.9% 250 ML IV SCH (11:57)
[2019-12-03] MEDS: MEROPENEM 500 MG in SODIUM CHLORIDE 0.9% 100 ML IV SCH ×2 (15:23→22:23)
[2019-12-03] MEDS: REMDESIVIR 100 MG in SODIUM CHLORIDE 0.9% 230 ML IV SCH (16:27)
[2019-12-03] MEDS: INSULIN GLARGINE 100 UNIT/ML SUBCUT SCH (20:28)
[2019-12-03] MEDS: SIMVASTATIN 10 MG TABLET PO SCH (20:29)
[2019-12-04] MEDS: ALBUTEROL INHALER 18 GM INH SCH ×4 (01:34→20:45)
[2019-12-04] MEDS: methylPREDNISolone SOD SUC 40 MG/1 ML VIAL IV SCH ×3 (01:34→16:12)
[2019-12-04] MEDS: MEROPENEM 500 MG in SODIUM CHLORIDE 0.9% 100 ML IV SCH ×4 (03:54→21:03)
[2019-12-04] MEDS: LACTULOSE 20 GM/30 ML UDCUP PO SCH ×2 (05:27→12:21)
[2019-12-04] MEDS: VANCOMYCIN INJ 1,250 MG in SODIUM CHLORIDE 0.9% 250 ML IV SCH (05:28)
[2019-12-04 06:38] LABS: Calcium 9.4 MG/DL (8.5-10.1); Osmolality,Calculated 277.7 MOS/KG (273-304)
[2019-12-04 06:50] LABS: Basophils % 0.1 % (0.0-0.8); Eosinophils % 0.1 % (0.00-10.9); Hematocrit 30.1 VOL% (42.0-52.0); Immature Granulocytes % 0.7 %; Immature Granulocytes Absolute 0.07 #; Lymphocytes # 0.3 10*3/uL (1.4-4.0); Lymphocytes % 3.2 % (21.2-54.2); Mean Corpuscular HGB Conc 28.9 GM/DL (32-36); Mean Corpuscular Volume 77.4 FL (87-102); Mean Platelet Volume 9.7 FL (9.6-12.0); Monocytes % 4.2 % (1.7-12.7); NRBC # 0.02 10*3/uL; Neutrophils % 91.7 % (38.7-73.9); Platelet Count 284 T/CUMM (130-400); Red Blood Count 3.89 MC/CUMM (3.8-5.5); White Blood Count 10.6 T/CUMM (4-12)
[2019-12-04 06:52] LABS: Hemoglobin 8.7 GM/DL (14.0-18.0)
[2019-12-04 06:56] LABS: Band Neutrophils 1 % (0-10); Lymphocytes 2 % (20-55); Segmented Neutrophils 93 % (50-85); Total Cells Counted 100
[2019-12-04 06:57] LABS: Burr Cells Slight; Hypochromasia 2+; Microcytosis 1+; Ovalocytes Slight; Platelet Estimate Adequate
[2019-12-04] MEDS: INSULIN LISPRO 100 UNIT/ML SUBCUT SCH ×4 (08:04→21:05)
[2019-12-04] MEDS: FAMOTIDINE 20 MG TABLET PO SCH ×2 (08:40→21:07)
[2019-12-04] MEDS: ASCORBIC ACID 500 MG TABLET PO SCH ×2 (08:40→21:07)
[2019-12-04] MEDS: ZINC GLUCONATE 50 MG TABLET PO SCH (08:41)
[2019-12-04] MEDS: MAGNESIUM OXIDE 400 MG TABLET PO SCH (08:43)
[2019-12-04] MEDS: MULTIVITAMIN (CENTRUM) TABLET PO SCH (08:45)
[2019-12-04] MEDS: FERROUS SULFATE 325 MG TABLET PO SCH (08:46)
[2019-12-04] MEDS: APIXABAN 5 MG TABLET PO SCH ×2 (08:47→21:06)
[2019-12-04] MEDS: ASPIRIN EC 81 MG TABLET PO SCH (08:47)
[2019-12-04] MEDS: CETIRIZINE 10 MG TABLET PO SCH (08:47)
[2019-12-04] MEDS: FLUTICASONE/SALMETEROL 250-50 DISKUS 14 DOSE INH SCH ×2 (08:48→21:06)
[2019-12-04] MEDS: FLUTICASONE 50 MCG NASAL SPRAY 16 GM BOTTLE BOTH NARES SCH (08:48)
[2019-12-04] MEDS: FOLIC ACID 1 MG TABLET PO SCH (08:48)
[2019-12-04] MEDS ORDERED: LACTULOSE 20 GM/30 ML UDCUP PO PRN (12:21)
[2019-12-04] MEDS: POLYETHYLENE GLYCOL POWDER 17 GM PACK PO SCH (16:11)
[2019-12-04] MEDS: REMDESIVIR 100 MG in SODIUM CHLORIDE 0.9% 230 ML IV SCH (17:49)
[2019-12-04] MEDS: INSULIN GLARGINE 100 UNIT/ML SUBCUT SCH (21:05)
[2019-12-04] MEDS: SIMVASTATIN 10 MG TABLET PO SCH (21:07)
[2019-12-05] MEDS: VANCOMYCIN INJ 1,250 MG in SODIUM CHLORIDE 0.9% 250 ML IV SCH (00:50)
[2019-12-05] MEDS: methylPREDNISolone SOD SUC 40 MG/1 ML VIAL IV SCH ×2 (00:51→09:19)
[2019-12-05] MEDS: ALBUTEROL INHALER 18 GM INH SCH ×3 (00:54→13:03)
[2019-12-05] MEDS: MEROPENEM 500 MG in SODIUM CHLORIDE 0.9% 100 ML IV SCH ×3 (03:18→15:16)
[2019-12-05] MEDS: INSULIN LISPRO 100 UNIT/ML SUBCUT SCH ×2 (07:23→13:03)
[2019-12-05] MEDS: FLUTICASONE/SALMETEROL 250-50 DISKUS 14 DOSE INH SCH (09:12)
[2019-12-05] MEDS: ASPIRIN EC 81 MG TABLET PO SCH (09:13)
[2019-12-05] MEDS: FERROUS SULFATE 325 MG TABLET PO SCH (09:14)
[2019-12-05] MEDS: APIXABAN 5 MG TABLET PO SCH (09:14)
[2019-12-05] MEDS: MULTIVITAMIN (CENTRUM) TABLET PO SCH (09:14)
[2019-12-05] MEDS: FLUTICASONE 50 MCG NASAL SPRAY 16 GM BOTTLE BOTH NARES SCH (09:15)
[2019-12-05] MEDS: FOLIC ACID 1 MG TABLET PO SCH (09:15)
[2019-12-05] MEDS: MAGNESIUM OXIDE 400 MG TABLET PO SCH (09:16)
[2019-12-05] MEDS: POLYETHYLENE GLYCOL POWDER 17 GM PACK PO SCH (09:16)
[2019-12-05] MEDS: FAMOTIDINE 20 MG TABLET PO SCH (09:18)
[2019-12-05] MEDS: CETIRIZINE 10 MG TABLET PO SCH (09:20)
[2019-12-05] MEDS: ZINC GLUCONATE 50 MG TABLET PO SCH (09:20)
[2019-12-05] MEDS: ASCORBIC ACID 500 MG TABLET PO SCH (09:20)
[2019-12-05] MEDS ORDERED: MAGNESIUM HYDROXIDE SUSP 30 ML UDCUP PO ONE (11:21)
[2019-12-05] MEDS ORDERED: DIGOXIN 0.5 MG/2 ML AMP IV ONE (13:52)
[2019-12-05] MEDS ORDERED: DIGOXIN 0.25 MG TABLET PO ONE (13:56)
[2019-12-05 16:16] VITALS: BP 106/66
== END 2019-12-05 15:25 | disposition swing bed (61) | DRG 177 ==
LOC: EDUNIT# → EDBD → N.ED 17:22 → SUATTDRO 20:47 → N.EDINP 20:47 → N.TELEN 21:42 → N.CC 11-30 23:39 → N.2E 12-01 11:52
PROVIDERS: ADMIT Internal Medicine; ATTEND Internal Medicine